=== PATIENT | male | born 1945 | race Caucasian/White ===

== ENCOUNTER → 2017-12-11 | Outpatient (CLI) | END | disposition home or self-care (01) ==

== ENCOUNTER 2018-02-19 10:19 | Observation (INO) | END 2018-02-20 18:40 | disposition home or self-care (01) ==

== ENCOUNTER 2018-03-03 06:55 | Inpatient (IN) | END 2018-03-07 19:35 | disposition home or self-care (01) | DRG 696 ==

== ENCOUNTER 2018-03-09 23:11 | Inpatient (IN) | payer MEDICARE, OTHER ==
[~2018-03-09] VITALS: Ht 167.6 cm; Wt 94.7 kg
[~2018-03-09 23:11] MED LIST: AMLO5TAB4 PO; ATEN-51 PO; ATOR40TA68 PO; LISI10TA2 PO; LITH300C PO; NPH,100V SQ; TAMS0.4C2 PO; TERA1CAP39 PO
[2018-03-09] MEDS ORDERED: morphine 4 MG/ML VIAL IV STA (23:23)
[2018-03-09] MEDS ORDERED: CEFEPIME 2GM/50 ML (PMX) 50 ML IVPB STA (23:23)
[2018-03-09] MEDS ORDERED: ONDANSETRON 4 MG INJ IV STA (23:23)
[2018-03-09] MEDS ORDERED: SODIUM CHLORIDE 0.9% 1L BAG IV* STA (23:23)
[2018-03-09] MEDS ORDERED: ACETAMINOPHEN 325 MG TAB PO STA (23:23)
[2018-03-09] MEDS ORDERED: VANCOMYCIN 1 GM (PMX) 250 ML IVPB ONE (23:30)
[2018-03-10] VITALS (12 sets, daily range): BP systolic 89–146; BP diastolic 48–65; PULSE 64–100; RESP 18–20; Ht 167.6 cm; Wt 94.7 kg
[2018-03-10] MEDS ORDERED: NACL 0.9% 3 ML SYG IV SCH (04:30)
[2018-03-10] MEDS ORDERED: GLUCOSE GEL 15 GRAM TUBE BUCCAL PRN (04:30)
[2018-03-10] MEDS ORDERED: LORAZEPAM 0.5 MG TAB PO PRN (04:30)
[2018-03-10] MEDS ORDERED: GLUCOSE GEL 15 GRAM TUBE PO PRN ×2 (04:30)
[2018-03-10] MEDS ORDERED: ACETAMINOPHEN 325 MG TAB PO PRN (04:30)
[2018-03-10] MEDS ORDERED: DEXTROSE 50% 50 ML SYRINGE IV PRN ×2 (04:30)
[2018-03-10] MEDS ORDERED: GLUCAGON 1 MG INJ IM PRN (04:30)
[2018-03-10] MEDS ORDERED: HYDROCODONE/APAP (5/325) TAB PO PRN (04:30)
[2018-03-10] MEDS ORDERED: DOCUSATE SODIUM 100 MG CAP PO PRN (04:30)
[2018-03-10] MEDS ORDERED: ONDANSETRON 4 MG TAB PO PRN (04:30)
[2018-03-10] MEDS ORDERED: FOSFOMYCIN 3 GM PACKET PO ONE (06:30)
--- NOTE | 2018-03-10 07:04 | NUR ---
EOSS: Pt. re-admitted to Tele 03/10/2018. Discharged from our unit about 3 days ago. Pt. came back due to urgency to void and blood in urine. Pt. placed on conveyor monitor. Vital signs stable. No fever. No chills. Wound assessment complete. Pictures filed in physical file. Hourly rounding complete. All needs meet. Bed in lowest position. Bed alarm on. Will continue to monitor.
[2018-03-10] MEDS: INSULIN ASPART [NOVOLOG] 3 ML PEN SC SCH ×7 (07:54→21:26)
[2018-03-10] MEDS ORDERED: INSULIN GLARGINE [LANTus] (100 UNITS/ML) SYG SC SCH (08:00)
--- NOTE | 2018-03-10 08:08 | NUR ---
Glucose 371. Called and informed Dr. Paulino. This RN gave insulin scheduled for this AM. No new orders.
[2018-03-10] MEDS ORDERED: ENOXAPARIN 40 MG/0.4 ML SYG SC SCH (09:00)
--- NOTE | 2018-03-10 09:22 | PN ---
Date/Time of Note Date/Time of Note DATE: 03/10/18 TIME: 09:13 Assessment/Plan VTE Prophylaxis SCD applied (from Nsg): Yes Pharmacological prophylaxis: NA/contraindicated (hematuria) Pharm contraindication: bleeding Lines/Catheters IV Catheter Type (from Nrsg): Peripheral IV Urinary Cath still in place: Yes Reason Cath still needed: other (indicate) (hematuria) Assessment/Plan Result Diagram: 03/09/18 2340 03/09/18 2340 Results 24hrs Laboratory Tests Test 03/09/18 23:27 03/09/18 23:40 03/10/18 07:43 POC Venous Lactate 3.0 *H White Blood Count 15.6 #H Red Blood Count 2.95 L Hemoglobin 9.1 L Hematocrit 27.7 L Mean Corpuscular Volume 93.9 Mean Corpuscular Hemoglobin 30.8 Mean Corpuscular 32.9 Hemoglobin Concent Red Cell Distribution Width 12.6 Platelet Count 439 #H Mean Platelet Volume 9.3 Immature Granulocytes % 0.600 H Neutrophils % 84.7 H Lymphocytes % 5.2 L Monocytes % 8.8 Eosinophils % 0.4 Basophils % 0.3 Nucleated Red Blood Cells % 0.0 Immature Granulocytes # 0.090 H Neutrophils # 13.2 H Lymphocytes # 0.8 Monocytes # 1.4 H Eosinophils # 0.1 Basophils # 0.1 Nucleated Red Blood Cells # 0.0 Prothrombin Time 13.7 Prothrombin Time Ratio 1.1 INR International 1.04 Normalized Ratio Activated Partial Thromboplast 26.9 Time Urine Color RED Urine Clarity TURBID A Urine pH 7.0 Urine Specific [place] 1.030 Urine Ketones TRACE A Urine Nitrite NEGATIVE Urine Bilirubin NEGATIVE Urine Urobilinogen NEGATIVE Urine Leukocyte Esterase NEGATIVE Urine Microscopic RBC > 182 H Urine Microscopic WBC 132 H Urine Hemoglobin 3+ H Urine Glucose 3+ H Urine Total Protein 3+ H Sodium Level 136 Potassium Level 4.8 Chloride Level 99 Carbon Dioxide Level 20 L Anion Gap 17 H Blood Urea Nitrogen 25 H Creatinine 1.17 Est Glomerular Filtrat Rate mL/min Glucose Level 468 *H Calcium Level 9.2 Total Bilirubin 1.1 Direct Bilirubin 0.00 Indirect Bilirubin 1.1 Aspartate Amino 17 Transf (AST/SGOT) Alanine 20 Aminotransferase (ALT/SGPT) Alkaline Phosphatase 126 H Troponin I < 0.012 Total Protein 6.4 Albumin 3.4 Globulin 3.00 Albumin/Globulin Ratio 1.13 Bedside Glucose 371 H Subjective 24 Hr Interval Summary Free Text/Dictation discharged home thursday after several day stay w gross hematuria, cleared with irrigation. last pm again hematuria, noted a temp at home, not clear if any pain, just difficulty voiding. adm this am, all cultures done, placed on antibiotics. wbc, lactate and glucose all elevated. hgb about same as on dc sleepy but alert. typically poor historian. other history positive for bipolar illness, currently stable w lithium ashd, stable, no sx diabetes, on nph bid at home, typically poor control, poor insight. fortunately no complications despite years of history plan, irrigation set up, dr andrews to follow up. lungs clear, hr ok, abd obese, non tender, ext neg. flowers in place with gross hematuria Genitourinary: bleeding Exam/Review of Systems Vital Signs Vitals Vital Signs Date Temp Pulse Resp B/P (MAP) Pulse Ox O2 O2 Flow FiO2 Time Delivery Rate 03/10/18 89 08:39 03/10/18 97.3 20 127/61 98 Room Air 07:14 (83) Intake and Output 03/09/18 03/09/18 03/10/18 1515:00 23:00 07:00 IntakeIntake Total 75 ml OutputOutput Total 300 ml BalanceBalance -225 ml Medications Medications Current Medications IV Flush (NS 3 ml) 3 ml PER PROTOCOL IV ; Start 03/10/18 at 04:30 Lorazepam (Ativan) 0.5 mg Q8H PRN PO ANXIETY; Start 03/10/18 at 04:30 Ondansetron HCl (Zofran Tab) 4 mg Q6H PRN PO NAUSEA AND/OR VOMITING; Start 03/10/18 at 04:30 Aspirin (Aspirin) 81 mg DAILY PO ; Start 03/10/18 at 09:00 Acetaminophen (Tylenol Tab) 650 mg Q6H PRN PO PAIN LEVEL 1-3 OR FEVER; Start 03/10/18 at 04:30 Acetaminophen/ Hydrocodone Bitart ([place] (5/325)) 1 tab Q6H PRN PO PAIN LEVEL 4-6; Start 03/10/18 at 04:30 Docusate Sodium (Colace) 100 mg Q12H PRN PO CONSTIPATION; Start 03/10/18 at 04:30 Famotidine (Pepcid) 20 mg Q12 PO ; Start 03/10/18 at 09:00 Enoxaparin Sodium (Lovenox) 40 mg DAILY SC ; Start 03/10/18 at 09:00 Cefepime HCl 50 ml @ 100 mls/hr Q12 IVPB ; Start 03/10/18 at 09:00 Amlodipine Besylate (Norvasc) 5 mg DAILY PO ; Start 03/10/18 at 09:00 Atenolol (Tenormin) 25 mg DAILY PO ; Start 03/10/18 at 09:00 Atorvastatin Calcium (Lipitor) 40 mg QHS PO ; Start 03/10/18 at 21:00 Lisinopril (Zestril) 10 mg DAILY PO ; Start 03/10/18 at 09:00 [place] Carbonate ([place] Carbonate) 300 mg DAILY PO ; Start 03/10/18 at 09:00 Tamsulosin HCl (Flomax) 0.4 mg HS PO ; Start 03/10/18 at 21:00 Diagnostic Test (Pha) (Accu-Chek) 1 ea 02 XX ; Start 03/11/18 at 02:00 Diagnostic Test (Pha) (Accu-Chek) 1 ea 2 HOURS AFTER MEALS XX ; Start 03/10/18 at 10:00 Insulin Aspart (Novolog Insulin Pen) 6 unit WITH MEALS SC Last administered on 03/10/18at 07:54; Admin Dose 6 UNIT; Start 03/10/18 at 08:00 Insulin Aspart (Novolog Insulin Pen) NOVOLOG *MILD* ALGORITHM WITH MEALS BEDTIME SC Last administered on 03/10/18at 07:54; Admin Dose 7 UNIT; Start 03/10/18 at 08:00 Miscellaneous Information 1 ea NOTE XX ; Start 03/10/18 at 04:30 Glucose (Glutose) 15 gm Q15M PRN PO DECREASED GLUCOSE; Start 03/10/18 at 04:30 Glucose (Glutose) 22.5 gm Q15M PRN PO DECREASED GLUCOSE; Start 03/10/18 at 04:30 Dextrose (D50w Syringe) 25 ml Q15M PRN IV DECREASED GLUCOSE; Start 03/10/18 at 04:30 Dextrose (D50w Syringe) 50 ml Q15M PRN IV DECREASED GLUCOSE; Start 03/10/18 at 04:30 Glucagon (Glucagen) 1 mg Q15M PRN IM DECREASED GLUCOSE; Start 03/10/18 at 04:30 Glucose (Glutose) 15 gm Q15M PRN BUCCAL DECREASED GLUCOSE; Start 03/10/18 at 04:30 Insulin Human NPH (Humulin N) 16 unit BID@08,20 SC ; Start 03/10/18 at 20:00; Status LILIAM TERESA MD Mar 10, 2018 09:22
[2018-03-10] MEDS: ASPIRIN 81 MG TAB PO SCH (09:42)
[2018-03-10] MEDS: ATENOLOL 25 MG TAB PO SCH (09:42)
[2018-03-10] MEDS: FAMOTIDINE 20 MG TAB PO SCH ×2 (09:42→20:52)
[2018-03-10] MEDS: LITHIUM CARBONATE 300 MG CAP PO SCH (09:42)
[2018-03-10] MEDS: AMLODIPINE 5 MG TAB PO SCH (09:42)
[2018-03-10] MEDS: LISINOPRIL 10 MG TAB PO SCH (09:42)
[2018-03-10] MEDS: CEFEPIME 2GM/50 ML (PMX) 50 ML IVPB SCH ×2 (09:43→21:21)
[2018-03-10] MEDS: ACCU-CHEK XX SCH ×3 (10:05→20:02)
--- NOTE | 2018-03-10 10:55 | PREOPHP ---
DATE OF ADMISSION: 03/10/2018 CHIEF COMPLAINT: Gross hematuria. HISTORY OF PRESENT ILLNESS: This is a 72-year-old male with known history of prostatic hyp ertrophy post-TUR in 2009. Patient was admitted several weeks ago with gross hematuria and was disch arged on Thursday with clear urine. At that time, he was treated with triple lumen irrigation and A large catheter with manual irrigation of bladder to remove clots by Dr. Babcock. The patient was doi ng well until last night when he again started to have some difficulty voiding and then noticed gross bleeding. He says he had a temperature of 101 and some sweats. In the Emergency Room, he was afebr ile and had a slightly elevated white count, slightly elevated lactate level. His blood sugars are h igh, but that is not unusual for him. Normal kidney function, normal liver functions, etc. Chest x- ray is unremarkable. Cultures were obtained. The patient was placed on intravenous antibiotics and given 1 dose of Monuril orally. His usual medications have been continued. The patient is admitted to the hospital. He is currently afebrile with normal blood pressure and pulse. There are no system ic signs of sepsis at this point, patient is in his usual state of health although he is quite fatigu ed. There is gross hematuria by Dougherty catheter. PAST MEDICAL HISTORY: Positive for prostatic enlargement. He has history of coronary artery disease with stent placement years ago. His cardiac status has been stable. Recent cardiac evaluation prio r to hernia repair was unremarkable longstanding history of diabetes type 2, poorly controlled despit e insulin, mainly because of diet and lack of exercise. There have been no complications. He has hi story of hypertension, hyperlipidemia and bipolar disorder. PAST SURGICAL HISTORY: Include the recent inguinal and umbilical hernia repair. He also has a cardi ac stent, shoulder dislocation repair and TURP. FAMILY HISTORY: Parents are both . Mother was a holocaust survivor. SOCIAL HISTORY: He lives alone with a little social contact other than a neighbor. The patient mainor gee smoked cigarettes, does not use alcohol. REVIEW OF SYSTEMS: Not complaining of headaches or dizziness. Requires reading glasses. He is not complaining of being short of breath or having exertional chest pain. No GI symptoms, even with gross hematuria. No significant rashes. PHYSICAL EXAMINATION: VITAL SIGNS: Blood pressure is 126/61, pulse is 90 regular sinus rhythm. He is afebrile. Normal pu lse ox on room air. GENERAL: Alert and fluent in his usual state of mentation. The patient does have some strange ideat ion but does not have hallucinations and is functioning and able to make appropriate decisions. HEENT: Unremarkable. Mouth somewhat dry. NECK: Supple. HEART: No murmurs are heard. LUNGS: Sound clear to percussion and auscultation. ABDOMEN: Obese, soft, without masses. GENITOURINARY: Dougherty is present. Gross hematuria is noted. EXTREMITIES: No clubbing, cyanosis, edema. Fair peripheral pulses. NEUROLOGIC: Intact. INITIAL IMPRESSION: 1. Gross hematuria, recurrent. Dr. Babcock has been consulted. Most likely the patient will need a cystoscopy and a possible surgical resection if there is a bleeding source. 2. Diabetes mellitus, poor control, stable without complications. 3. Atherosclerotic coronary artery disease, stable. 4. Hypertension, stable under treatment. 5. Bipolar illness, stable on [place]. DISCUSSION: His usual home medicines have been continued, and as noted Dr. Babcock has been consulte d. CONDITION: Fair. Dictated By: LILIAM IVERSON MD SR/NTS Conf#: [id number] DID#: [id number] CC: BENJA CHAVEZ MD;*End*
--- NOTE | 2018-03-10 11:06 | PREAC ---
Date/Time of Note Date/Time of Note DATE: 03/10/18 TIME: 11:04 Anesthesia Eval and Record Evaluation Time Pre-Procedure Interview DATE: 03/10/18 TIME: 11:04 Age 72 Sex male NPO: 8 hrs Preoperative diagnosis hematuria Planned procedure Cystoscopy Past Medical History Past Medical History: Includes Cardio: HTN, Dyslipidemia, PTCA/Stent (stent x2) Psych: Bipolar Surgery & Anesthesia Issues No known issue Meds Anticoagulation: No Beta Krystina within 24 hr: Yes Reported Medications Insulin NPH Human [place] (Humulin N) 100 Unit/1 Ml Vial, 0 SQ SLIDING SCALE, VIAL 02/19/18 Atenolol* (Atenolol*) 25 Mg Tablet, 25 MG PO DAILY, #30 TAB 02/19/18 [place] Carbonate* ([place]*) 300 Mg Capsule, 300 MG PO DAILY, CAP 02/19/18 Lisinopril* (Lisinopril*) 10 Mg Tablet, 10 MG PO DAILY, #30 TAB 02/19/18 Amlodipine Besylate* (Norvasc*) 5 Mg Tablet, 5 MG PO DAILY, TAB 02/19/18 Terazosin Hcl* (Hytrin*) 1 Mg Cap, 1 MG PO BID, CAP 02/19/18 Atorvastatin* (Atorvastatin*) 40 Mg Tablet, 40 MG PO QHS, #30 TAB 02/19/18 Tamsulosin Hcl* (Tamsulosin Hcl*) 0.4 Mg Cap.er.24h, 0.4 MG PO HS, CAP 02/19/18 Current Medications IV Flush (NS 3 ml) 3 ml PER PROTOCOL IV ; Start 03/10/18 at 04:30 Lorazepam (Ativan) 0.5 mg Q8H PRN PO ANXIETY; Start 03/10/18 at 04:30 Ondansetron HCl (Zofran Tab) 4 mg Q6H PRN PO NAUSEA AND/OR VOMITING; Start 03/10/18 at 04:30 Aspirin (Aspirin) 81 mg DAILY PO Last administered on 03/10/18at 09:42; Admin Dose 81 MG; Start 03/10/18 at 09:00 Acetaminophen (Tylenol Tab) 650 mg Q6H PRN PO PAIN LEVEL 1-3 OR FEVER; Start 03/10/18 at 04:30 Acetaminophen/ Hydrocodone Bitart ([place] (5/325)) 1 tab Q6H PRN PO PAIN LEVEL 4-6 Last administered on 03/10/18 09:52; Admin Dose 1 TAB; Start 03/10/18 at 04:30 Docusate Sodium (Colace) 100 mg Q12H PRN PO CONSTIPATION; Start 03/10/18 at 04:30 Famotidine (Pepcid) 20 mg Q12 PO Last administered on 03/10/18 09:42; Admin Dose 20 MG; Start 03/10/18 at 09:00 Cefepime HCl 50 ml @ 100 mls/hr Q12 IVPB Last administered on 03/10/18 09:43; Admin Dose 100 MLS/HR; Start 03/10/18 at 09:00 Amlodipine Besylate (Norvasc) 5 mg DAILY PO Last administered on 03/10/18 09:42; Admin Dose 5 MG; Start 03/10/18 at 09:00 Atenolol (Tenormin) 25 mg DAILY PO Last administered on 03/10/18 09:42; Admin Dose 25 MG; Start 03/10/18 at 09:00 Atorvastatin Calcium (Lipitor) 40 mg QHS PO ; Start 03/10/18 at 21:00 Lisinopril (Zestril) 10 mg DAILY PO Last administered on 03/10/18 09:42; Admin Dose 10 MG; Start 03/10/18 at 09:00 [place] Carbonate ([place] Carbonate) 300 mg DAILY PO Last administered on 03/10/18 09:42; Admin Dose 300 MG; Start 03/10/18 at 09:00 Tamsulosin HCl (Flomax) 0.4 mg HS PO ; Start 03/10/18 at 21:00 Diagnostic Test (Pha) (Accu-Chek) 1 ea 02 XX ; Start 03/11/18 at 02:00 Diagnostic Test (Pha) (Accu-Chek) 1 ea 2 HOURS AFTER MEALS XX Last administered on 03/10/18at 10:05; Admin Dose 1 EA; Start 03/10/18 at 10:00 Insulin Aspart (Novolog Insulin Pen) 6 unit WITH MEALS SC Last administered on 03/10/18 07:54; Admin Dose 6 UNIT; Start 03/10/18 at 08:00 Insulin Aspart (Novolog Insulin Pen) NOVOLOG *MILD* ALGORITHM WITH MEALS BEDTIME SC Last administered on 12/26/18at 07:54; Admin Dose 7 UNIT; Start 03/10/18 at 08:00 Miscellaneous Information 1 ea NOTE XX ; Start 03/10/18 at 04:30 Glucose (Glutose) 15 gm Q15M PRN PO DECREASED GLUCOSE; Start 03/10/18 at 04:30 Glucose (Glutose) 22.5 gm Q15M PRN PO DECREASED GLUCOSE; Start 03/10/18 at 04:30 Dextrose (D50w Syringe) 25 ml Q15M PRN IV DECREASED GLUCOSE; Start 03/10/18 at 04:30 Dextrose (D50w Syringe) 50 ml Q15M PRN IV DECREASED GLUCOSE; Start 03/10/18 at 04:30 Glucagon (Glucagen) 1 mg Q15M PRN IM DECREASED GLUCOSE; Start 03/10/18 at 04:30 Glucose (Glutose) 15 gm Q15M PRN BUCCAL DECREASED GLUCOSE; Start 03/10/18 at 04:30 Insulin Human NPH (Humulin N) 16 unit BID@08,20 SC ; Start 03/10/18 at 20:00 Meds reviewed: Yes Allergies Coded Allergies: No Known Drug Allergy (Verified Allergy, Unknown, 03/02/18) Allergies Reviewed: Yes Labs/Studies Labs Reviewed: Reviewed by anesthesiologist Result Diagram: 03/09/18 2340 03/09/18 2340 Laboratory Tests 03/09/18 23:40 test: N/A Studies: ECG (ST), CXR (Rotated chest x-ray with low lung volumes. No acute disease.) Pre-procedure Exam Last vitals Vital Signs Date Temp Pulse Resp B/P (MAP) Pulse Ox O2 O2 Flow FiO2 Time Delivery Rate 03/10/18 89 08:39 03/10/18 97.3 20 127/61 98 Room Air 07:14 (83) Airway: Adequate mouth opening Mallampati: Mallampati II Teeth: Normal Lung: Normal Heart: Normal ASA Physical Status ASA physical status: 3 Emergency: None Planned Anesthetic General/MAC: LMA Pre-operative Attestations Prior to commencing anesthesia and surgery, the patient was re-evaluated, there was verification of: *The patient's identity *The results of appropriate recent lab work and preoperative vital signs *The above evaluation not changing prior to induction *Anesthetic plan, risk benefits, alternative and complications discussed with patient/family; questions answered; patient/family understands, accepts and wishes to proceed. CHRISTINE STANLEY Mar 10, 2018 11:06
--- NOTE | 2018-03-10 11:06 | NUR ---
SW: READMISSION QUESTIONNAIRE SW met with this 72-year-old Filipino speaking male at bedside for readmission questionnaire. Patient recently d/c'd home on 03/07/18. and readmitted 3 days later on 03/10/18 with admitting diagnosis of Sepsis and UTI. Patient states he did not read his discharge instructions. States that he did not follow up with his PMD because he was home for only 3 days. States that he got all of his medications filled and denies any issues with his medications. Denies any questions/ concerns, and states he just wants to get better. Patient states he lives home alone at [address] [place], [place] [id number] [id number]. States he is retired and he lives off of his saved money from stocks and bonds. States he does also receive a "small jail pension" of about $200 a month. Patient states he is fully independent at home with his ADL's, and states he drives a car. Patient denies having an AHCD, and states he has nobody he wants to designate as a surrogate spokesperson. States that he does not want to put the burden of making decisions on anybody. States he wants two physicians to sign off incase of emergencies. States he wants to be full code at this time, but states that if it seems like he is not going to recover, then to "let him be." Patient declined to provide more information. Patient denies any questions/ concerns. SW remains available as needed throughout patient's treatment process.
--- NOTE | 2018-03-10 12:29 | CONS ---
Date/Time of Note Date/Time of Note DATE: 03/10/18 TIME: 12:16 Assessment/Plan Assessment/Plan Assessment/Plan 72-year-old male with a history of coronary artery disease with stent placement years ago was admitted to the hospital last week because of gross hematuria. He had an indwelling catheter with continuous bladder irrigation. The urine cleared up and the Douhgerty was removed and he was able to urinate and was discharged home to follow-up as an outpatient. However the patient started having gross hematuria again and was not able to urinate and called 911 and was brought to the hospital again. His cardiac status has been stable. Recent cardiac evaluation prior to hernia repair was unremarkable longstanding history of diabetes type 2, poorly controlled despite insulin, mainly because of diet and lack of exercise. There have been no complications. He has history of hypertension, hyperlipidemia and bipolar disorder. I did remove the old Dougherty catheter and inserted a new 24 Chinese three-way Dougherty catheter with a 30 cc balloon. Spent over 40 minutes and irrigating the blood clots out of the bladder and then put him on continuous bladder irrigation with normal saline. Impression: Gross hematuria and urinary retention. This is most likely secondary to bleeding from the prostate but the bladder tumor is a possibility. Plan: Cystoscopy and possible transurethral resection of bladder tumor and / or prostate. I explained the procedure to the patient, the benefits, the risks and possible complications and answered all his questions. He understood and he is agreeable to proceed. Result Diagram: 03/09/18 2340 03/09/18 2340 Results 24hrs Laboratory Tests Test 03/09/18 23:27 03/09/18 23:40 03/10/18 07:43 03/10/18 08:05 POC Venous 3.0 *H Lactate White Blood 15.6 #H Count Red Blood Count 2.95 L Hemoglobin 9.1 L Hematocrit 27.7 L Mean Corpuscular 93.9 Volume Mean Corpuscular 30.8 Hemoglobin Mean Corpuscular 32.9 Hemoglobin Aubrie nt Red Cell 12.6 Distribution Width Platelet Count 439 #H Mean Platelet 9.3 Volume Immature 0.600 H Granulocytes % Neutrophils % 84.7 H Lymphocytes % 5.2 L Monocytes % 8.8 Eosinophils % 0.4 Basophils % 0.3 Nucleated Red 0.0 Blood Cells % Immature 0.090 H Granulocytes # Neutrophils # 13.2 H Lymphocytes # 0.8 Monocytes # 1.4 H Eosinophils # 0.1 Basophils # 0.1 Nucleated Red 0.0 Blood Cells # Prothrombin Time 13.7 Prothrombin Time 1.1 Ratio INR 1.04 International Normalized Ratio Activated 26.9 Partial Thrombop last Time Urine Color RED ROMEO Urine Clarity TURBID A CLOUDY A Urine pH 7.0 8.0 Urine Specific 1.030 1.027 [place] Urine Ketones TRACE A TRACE A Urine Nitrite NEGATIVE NEGATIVE Urine Bilirubin NEGATIVE NEGATIVE Urine NEGATIVE NEGATIVE Urobilinogen Urine Leukocyte NEGATIVE NEGATIVE Esterase Urine > 182 H Microscopic RBC Urine 132 H Microscopic WBC Urine Hemoglobin 3+ H 3+ H Urine Glucose 3+ H 3+ H Urine Total 3+ H 3+ H Protein Sodium Level 136 Potassium Level 4.8 Chloride Level 99 Carbon Dioxide 20 L Level Anion Gap 17 H Blood Urea 25 H Nitrogen Creatinine 1.17 Est Glomerular Filtrat Rate mL/min Glucose Level 468 *H Calcium Level 9.2 Total Bilirubin 1.1 Direct Bilirubin 0.00 Indirect 1.1 Bilirubin Aspartate Amino 17 Transf (AST/SGOT ) Alanine 20 Aminotransferase (ALT/SGPT) Alkaline 126 H Phosphatase Troponin I < 0.012 Total Protein 6.4 Albumin 3.4 Globulin 3.00 Albumin/Globulin 1.13 Ratio Bedside Glucose 371 H Test 03/10/18 08:22 03/10/18 09:59 Lactic Acid 1.3 Level Bedside Glucose 220 Consultation Date/Type/Reason Admit Date/Time Mar 10, 2018 at 01:22 Date of Consultation: Mar 10, 2018 Type of Consult Urology Reason for Consultation Gross hematuria and urinary retention Requesting Provider: LILIAM IVERSON MD Hx of Present Illness 72-year-old male with a history of coronary artery disease with stent placement years ago was admitted to the hospital last week because of gross hematuria. He had an indwelling catheter with continuous bladder irrigation. The urine cleared up and the Dougherty was removed and he was able to urinate and was discharged home to follow-up as an outpatient. However the patient started having gross hematuria again and was not able to urinate and called 911 and was brought to the hospital again. Eyes: no complaints ENT: no complaints Respiratory: no complaints Cardiovascular: No chest pain Gastrointestinal: pain (Lower abdomen) Genitourinary: hematuria Musculoskeletal: no complaints Skin: no complaints Neurologic: no complaints Endocrine: other (Patient has diabetes) Lymphatic: no complaints Psychological: other (Bipolar disorder) Immunologic: no complaints Past Medical History Medical History: coronary artery disease, diabetes, high cholesterol, hypertension Medications Current Medications IV Flush (NS 3 ml) 3 ml PER PROTOCOL IV ; Start 03/10/18 at 04:30 Lorazepam (Ativan) 0.5 mg Q8H PRN PO ANXIETY; Start 03/10/18 at 04:30 Ondansetron HCl (Zofran Tab) 4 mg Q6H PRN PO NAUSEA AND/OR VOMITING; Start 03/10/18 at 04:30 Aspirin (Aspirin) 81 mg DAILY PO Last administered on 03/10/18at 09:42; Admin Dose 81 MG; Start 03/10/18 at 09:00 Acetaminophen (Tylenol Tab) 650 mg Q6H PRN PO PAIN LEVEL 1-3 OR FEVER; Start 03/10/18 at 04:30 Acetaminophen/ Hydrocodone Bitart ([place] (5/325)) 1 tab Q6H PRN PO PAIN LEVEL 4-6 Last administered on 03/10/18at 09:52; Admin Dose 1 TAB; Start 03/10/18 at 04:30 Docusate Sodium (Colace) 100 mg Q12H PRN PO CONSTIPATION; Start 03/10/18 at 04:30 Famotidine (Pepcid) 20 mg Q12 PO Last administered on 03/10/18at 09:42; Admin Dose 20 MG; Start 03/10/18 at 09:00 Cefepime HCl 50 ml @ 100 mls/hr Q12 IVPB Last administered on 03/10/18at 09:43; Admin Dose 100 MLS/HR; Start 03/10/18 at 09:00 Amlodipine Besylate (Norvasc) 5 mg DAILY PO Last administered on 03/10/18at 09:42; Admin Dose 5 MG; Start 03/10/18 at 09:00 Atenolol (Tenormin) 25 mg DAILY PO Last administered on 03/10/18at 09:42; Admin Dose 25 MG; Start 03/10/18 at 09:00 Atorvastatin Calcium (Lipitor) 40 mg QHS PO ; Start 03/10/18 at 21:00 Lisinopril (Zestril) 10 mg DAILY PO Last administered on 03/10/18at 09:42; Admin Dose 10 MG; Start 03/10/18 at 09:00 [place] Carbonate ([place] Carbonate) 300 mg DAILY PO Last administered on 03/10/18at 09:42; Admin Dose 300 MG; Start 03/10/18 at 09:00 Tamsulosin HCl (Flomax) 0.4 mg HS PO ; Start 03/10/18 at 21:00 Diagnostic Test (Pha) (Accu-Chek) 1 ea 02 XX ; Start 03/11/18 at 02:00 Diagnostic Test (Pha) (Accu-Chek) 1 ea 2 HOURS AFTER MEALS XX Last administered on 03/10/18at 10:05; Admin Dose 1 EA; Start 03/10/18 at 10:00 Insulin Aspart (Novolog Insulin Pen) 6 unit WITH MEALS SC Last administered on 03/10/18at 07:54; Admin Dose 6 UNIT; Start 03/10/18 at 08:00 Insulin Aspart (Novolog Insulin Pen) NOVOLOG *MILD* ALGORITHM WITH MEALS BEDTIME SC Last administered on 03/10/18at 07:54; Admin Dose 7 UNIT; Start 03/10/18 at 08:00 Miscellaneous Information 1 ea NOTE XX ; Start 03/10/18 at 04:30 Glucose (Glutose) 15 gm Q15M PRN PO DECREASED GLUCOSE; Start 03/10/18 at 04:30 Glucose (Glutose) 22.5 gm Q15M PRN PO DECREASED GLUCOSE; Start 03/10/18 at 0 4:30 Dextrose (D50w Syringe) 25 ml Q15M PRN IV DECREASED GLUCOSE; Start 03/10/18 at 04:30 Dextrose (D50w Syringe) 50 ml Q15M PRN IV DECREASED GLUCOSE; Start 03/10/18 at 04:30 Glucagon (Glucagen) 1 mg Q15M PRN IM DECREASED GLUCOSE; Start 03/10/18 at 04:30 Glucose (Glutose) 15 gm Q15M PRN BUCCAL DECREASED GLUCOSE; Start 03/10/18 at 04:30 Insulin Human NPH (Humulin N) 16 unit BID@08,20 SC ; Start 03/10/18 at 20:00 Allergies: Coded Allergies: No Known Drug Allergy (Verified Allergy, Unknown, 03/02/18) Past Surgical History Past Surgical Hx: other (Umbilical and inguinal hernia repair recently. Repair of right shoulder dislocation. Coronary stent. And transurethral resection of prostate in 2009.) Social History Alcohol Use: rarely Smoking Status: Never smoker Exam/Review of Systems Vital Signs Vitals Vital Signs Date Temp Pulse Resp B/P (MAP) Pulse Ox O2 O2 Flow FiO2 Time Delivery Rate 03/10/18 73 12:10 03/10/18 98.5 20 89/55 (66) 95 Room Air 11:11 Intake and Output 03/09/18 03/09/18 03/10/18 1515:00 23:00 07:00 IntakeIntake Total 75 ml OutputOutput Total 300 ml BalanceBalance -225 ml Exam Constitutional: alert Psych: no complaints Head: normocephalic Eyes: nl conjunctiva ENMT: nl external ears & nose Neck: supple Respiratory: normal air movement Cardiovascular: No jugular venous distention (JVD) Gastrointestinal: tender (Suprapubic area) Genitourinary - Male: other (Has a 16 Chinese Dougherty catheter that is draining gross bloody urine.) Musculoskeletal: nl extremities to inspection Extremities: No calf tenderness Neurological: nl mental status Skin: nl turgor Medications Medications Current Medications IV Flush (NS 3 ml) 3 ml PER PROTOCOL IV ; Start 03/10/18 at 04:30 Lorazepam (Ativan) 0.5 mg Q8H PRN PO ANXIETY; Start 03/10/18 at 04:30 Ondansetron HCl (Zofran Tab) 4 mg Q6H PRN PO NAUSEA AND/OR VOMITING; Start 03/10/18 at 04:30 Aspirin (Aspirin) 81 mg DAILY PO Last administered on 03/10/18at 09:42; Admin Dose 81 MG; Start 03/10/18 at 09:00 Acetaminophen (Tylenol Tab) 650 mg Q6H PRN PO PAIN LEVEL 1-3 OR FEVER; Start 03/10/18 at 04:30 Acetaminophen/ Hydrocodone Bitart ([place] (5/325)) 1 tab Q6H PRN PO PAIN LEVEL 4-6 Last administered on 03/10/18at 09:52; Admin Dose 1 TAB; Start 03/10/18 at 04:30 Docusate Sodium (Colace) 100 mg Q12H PRN PO CONSTIPATION; Start 03/10/18 at 04:30 Famotidine (Pepcid) 20 mg Q12 PO Last administered on 03/10/18at 09:42; Admin Dose 20 MG; Start 03/10/18 at 09:00 Cefepime HCl 50 ml @ 100 mls/hr Q12 IVPB Last administered on 03/10/18at 09:43; Admin Dose 100 MLS/HR; Start 03/10/18 at 09:00 Amlodipine Besylate (Norvasc) 5 mg DAILY PO Last administered on 03/10/18at 09:42; Admin Dose 5 MG; Start 03/10/18 at 09:00 Atenolol (Tenormin) 25 mg DAILY PO Last administered on 03/10/18at 09:42; Admin Dose 25 MG; Start 03/10/18 at 09:00 Atorvastatin Calcium (Lipitor) 40 mg QHS PO ; Start 03/10/18 at 21:00 Lisinopril (Zestril) 10 mg DAILY PO Last administered on 03/10/18at 09:42; Admin Dose 10 MG; Start 03/10/18 at 09:00 [place] Carbonate ([place] Carbonate) 300 mg DAILY PO Last administered on 03/10/18at 09:42; Admin Dose 300 MG; Start 03/10/18 at 09:00 Tamsulosin HCl (Flomax) 0.4 mg HS PO ; Start 03/10/18 at 21:00 Diagnostic Test (Pha) (Accu-Chek) 1 ea 02 XX ; Start 03/11/18 at 02:00 Diagnostic Test (Pha) (Accu-Chek) 1 ea 2 HOURS AFTER MEALS XX Last administered on 03/10/18at 10:05; Admin Dose 1 EA; Start 03/10/18 at 10:00 Insulin Aspart (Novolog Insulin Pen) 6 unit WITH MEALS SC Last administered on 03/10/18at 07:54; Admin Dose 6 UNIT; Start 03/10/18 at 08:00 Insulin Aspart (Novolog Insulin Pen) NOVOLOG *MILD* ALGORITHM WITH MEALS BEDTIME SC Last administered on 03/10/18at 07:54; Admin Dose 7 UNIT; Start 03/10/18 at 08:00 Miscellaneous Information 1 ea NOTE XX ; Start 03/10/18 at 04:30 Glucose (Glutose) 15 gm Q15M PRN PO DECREASED GLUCOSE; Start 03/10/18 at 04:30 Glucose (Glutose) 22.5 gm Q15M PRN PO DECREASED GLUCOSE; Start 03/10/18 at 04:30 Dextrose (D50w Syringe) 25 ml Q15M PRN IV DECREASED GLUCOSE; Start 03/10/18 at 04:30 Dextrose (D50w Syringe) 50 ml Q15M PRN IV DECREASED GLUCOSE; Start 03/10/18 at 04:30 Glucagon (Glucagen) 1 mg Q15M PRN IM DECREASED GLUCOSE; Start 03/10/18 at 04:30 Glucose (Glutose) 15 gm Q15M PRN BUCCAL DECREASED GLUCOSE; Start 03/10/18 at 04:30 Insulin Human NPH (Humulin N) 16 unit BID@08,20 SC ; Start 03/10/18 at 20:00 KAELA DOZIER MD Mar 10, 2018 12:28
[2018-03-10] MEDS ORDERED: SOD CHLORIDE 0.9% 250 ML IV* ONE (12:37)
--- NOTE | 2018-03-10 17:25 | NUR ---
Gave nursing report to Usha on Med-Surg.
--- NOTE | 2018-03-10 18:00 | NUR ---
Sent pt to room 2251. Pt stable. Sent by bed with transport and [employer] [employer]. No complaints. Sent with belongings. All needs met today. IV intact.
--- NOTE | 2018-03-10 18:20 | NUR ---
NRSG NOTE Report received from Sandra on 6w. Pt received to room 2251. A/OX4. Vitals stable. 1 unit of prbc currently transfusing without transfusion reaction. Right hand IV. CBI with flowers catheter with clear lightly pink output. SCD to bilateral lower extremity. Skin to lower extremity intact. Pt refused to turn to assess his back. Pt referred to be done with blood. Novolog pen and nph insulin and 1 tab lithium carbonate. Pt to be NPO after midnight for procedure with Dr. Babcock tomorrow. Oriented pt to call light and to bed alarm. Bed in lowest position and call light within reach.
--- NOTE | 2018-03-10 19:25 | NUR ---
BLOOD TRANSFUSION : 1 UNIT OF PRBC CURRENTLY TRANSFUSING WITHOUT TRANSFUSION REACTION / ADVERSE REACTION . RIGHT HAND IV . CBI WITH [address] WAY FRANCOIS CATHETER WITH CLEAR LIGHTLY PINK IN COLOR URINE OUTPUT. WILL CONTINUE TO MONITOR .
[2018-03-10] MEDS: NPH, HUMAN INSULIN ISOPHANE 3ML VIAL SC SCH (20:00)
--- NOTE | 2018-03-10 20:15 | NUR ---
BLOOD TRANSFUSION 1 UNIT PRBC COMPLETED . NO ADVERSE REACTION NOTED . V/S STABLE .
[2018-03-10] MEDS: ATORVASTATIN 40 MG TAB PO SCH (20:52)
[2018-03-10] MEDS ORDERED: TAMSULOSIN (SR) 0.4 MG CAP PO SCH (21:00)
--- NOTE | 2018-03-10 21:49 | NUR ---
CHARGE NURSE NOTE: Moved patient to room #2236 due to trying to get out of bed. Frequent reminders of safety, yet patient keeps talking over this nurse, and stating he wants to "get out of this cave". Will continue to monitor.
[2018-03-11] VITALS (24 sets, daily range): BP systolic 98–167; BP diastolic 46–66; PULSE 71–104; RESP 0–30
[2018-03-11] MEDS: ACCU-CHEK XX SCH ×4 (02:00→20:05)
--- NOTE | 2018-03-11 02:04 | NUR ---
CHARGE NURSE NOTE: Patient frequently thinks he is at home. Providing frequent orientation. Patient is talkative, and speaks fast. Will continue to monitor.
[2018-03-11] MEDS ORDERED: NEOSTIGMINE 3 MG/3 ML SYRINGE ONE (07:00)
[2018-03-11] MEDS ORDERED: ONDANSETRON 4 MG INJ ONE (07:00)
[2018-03-11] MEDS ORDERED: LIDOCAINE 2% (SDV) 5 ML INJ ONE (07:00)
[2018-03-11] MEDS ORDERED: ROCURONIUM 50 MG INJ ONE (07:00)
[2018-03-11] MEDS ORDERED: GLYCOPYRROLATE 0.4 MG INJ ONE (07:00)
[2018-03-11] MEDS ORDERED: FENTAnyl 50 MCG/ML VIAL ONE (07:00)
[2018-03-11] MEDS ORDERED: CEFAZOLIN 1 GM INJ ONE (07:00)
[2018-03-11] MEDS ORDERED: PROPOFOL 200 MG INJ ONE (07:00)
[2018-03-11] MEDS: INSULIN ASPART [NOVOLOG] 3 ML PEN SC SCH ×7 (07:35→21:26)
[2018-03-11] MEDS: LISINOPRIL 10 MG TAB PO SCH ×2 (08:36→21:22)
[2018-03-11] MEDS: ATENOLOL 25 MG TAB PO SCH (08:37)
[2018-03-11] MEDS: NPH, HUMAN INSULIN ISOPHANE 3ML VIAL SC SCH ×2 (08:37→21:24)
[2018-03-11] MEDS: FAMOTIDINE 20 MG TAB PO SCH ×2 (08:37→21:17)
[2018-03-11] MEDS: CEFEPIME 2GM/50 ML (PMX) 50 ML IVPB SCH (08:37)
[2018-03-11] MEDS: LITHIUM CARBONATE 300 MG CAP PO SCH (08:37)
[2018-03-11] MEDS: AMLODIPINE 5 MG TAB PO SCH (08:37)
[2018-03-11] MEDS: ASPIRIN 81 MG TAB PO SCH (08:38)
--- NOTE | 2018-03-11 09:27 | NUR ---
PT Evaluation note: S: HPI per MD note: This is a 72-year-old male with known history of prostatic hypertrophy post-TUR in 2009. Patient was admitted several weeks ago with gross hematuria and was discharged on Thursday with clear urine. At that time, he was treated with triple lumen irrigation and A large catheter with manual irrigation of bladder to remove clots by Dr. Babcock. The patient was doing well until last night when he again started to have some difficulty voiding and then noticed gross bleeding. He says he had a temperature of 101 and some sweats. In the Emergency Room, he was afebrile and had a slightly elevated white count, slightly elevated lactate level. His blood sugars are high, but that is not unusual for him. Normal kidney function, normal liver functions, etc. Chest x-ray is unremarkable. Cultures were obtained. The patient was placed on intravenous antibiotics and given 1 dose of Monuril orally. His usual medications have been continued. The patient is admitted to the hospital. He is currently afebrile with normal blood pressure and pulse. There are no systemic signs of sepsis at this point, patient is in his usual state of health although he is quite fatigued. There is gross hematuria by Dougherty catheter. O: PREC: HIGH fall risk, forgetful, confused, impulsive PLOF: Per pt he was independent with all ADL and ambulatory without AD, lives alone in apt unit, first floor with 3 steps to enter, no DME owned by patient. pt not sure who will take care of him upon DC. PLOF and living situation needed to be clarified however no contact lens curve grinder assigned in the chart. MD order received for PT consult, pt agreeable, cleared by RN in charge L[place] to proceed, pt pleasantly confused but follows command with multiple/repeated cues. CLOF; Patient needed mod assist for bed mobility, min x 2 for safety due to impulsivity and not focused for transfers, pre-gait training and marching in place along bedside, limited distance due to on going drain and lines. A: Patient can benefit from ARU. P: Cont PT and progress as able, 2P assist for safety.
--- NOTE | 2018-03-11 10:11 | PREAC ---
Date/Time of Note Date/Time of Note DATE: 03/11/18 TIME: 10:05 Anesthesia Eval and Record Evaluation Time Pre-Procedure Interview DATE: 03/11/18 TIME: 10:05 Age 72 Sex male NPO: 8 hrs Preoperative diagnosis BPH Planned procedure Cystoscopy and Poss TURP Past Medical History Past Medical History: Includes Cardio: HTN, Dyslipidemia Endo: Diabetes Pulm: Other Neuro: Peripheral neuropathy Musculoskeletal: Osteoarthritis Renal: BPH, Other Hepatic: Other GI: Other Heme: Anemia Psych: Depression, Anxiety Infection(s): Other Recreational drugs: Other : Other Surgery & Anesthesia Issues Hx of difficult intubation, Significant blood loss, Aspiration risk Meds Anticoagulation: No Beta Krystina within 24 hr: Yes Reason Beta Krystina not given: Other Reported Medications Insulin NPH Human [place] (Humulin N) 100 Unit/1 Ml Vial, 0 SQ SLIDING SCALE, VIAL 02/19/18 Atenolol* (Atenolol*) 25 Mg Tablet, 25 MG PO DAILY, #30 TAB 02/19/18 [place] Carbonate* ([place]skal[place]*) 300 Mg Capsule, 300 MG PO DAILY, CAP 02/19/18 Lisinopril* (Lisinopril*) 10 Mg Tablet, 10 MG PO DAILY, #30 TAB 02/19/18 Amlodipine Besylate* (Norvasc*) 5 Mg Tablet, 5 MG PO DAILY, TAB 02/19/18 Terazosin Hcl* (Hytrin*) 1 Mg Cap, 1 MG PO BID, CAP 02/19/18 Atorvastatin* (Atorvastatin*) 40 Mg Tablet, 40 MG PO QHS, #30 TAB 02/19/18 Tamsulosin Hcl* (Tamsulosin Hcl*) 0.4 Mg Cap.er.24h, 0.4 MG PO HS, CAP 02/19/18 Current Medications IV Flush (NS 3 ml) 3 ml PER PROTOCOL IV ; Start 03/10/18 at 04:30 Lorazepam (Ativan) 0.5 mg Q8H PRN PO ANXIETY; Start 03/10/18 at 04:30 Ondansetron HCl (Zofran Tab) 4 mg Q6H PRN PO NAUSEA AND/OR VOMITING; Start 03/10/18 at 04:30 Aspirin (Aspirin) 81 mg DAILY PO Last administered on 03/10/18at 09:42; Admin Dose 81 MG; Start 03/10/18 at 09:00 Acetaminophen (Tylenol Tab) 650 mg Q6H PRN PO PAIN LEVEL 1-3 OR FEVER Last administered on 03/10/18at 13:54; Admin Dose 650 MG; Start 03/10/18 at 04:30 Acetaminophen/ Hydrocodone Bitart ([place] (5/325)) 1 tab Q6H PRN PO PAIN LEVEL 4-6 Last administered on 03/10/18 09:52; Admin Dose 1 TAB; Start 03/10/18 at 04:30 Docusate Sodium (Colace) 100 mg Q12H PRN PO CONSTIPATION; Start 03/10/18 at 04:30 Famotidine (Pepcid) 20 mg Q12 PO Last administered on 03/11/18 08:37; Admin Dose 20 MG; Start 03/10/18 at 09:00 Cefepime HCl 50 ml @ 100 mls/hr Q12 IVPB Last administered on 03/11/18 08:37; Admin Dose 100 MLS/HR; Start 03/10/18 at 09:00 Amlodipine Besylate (Norvasc) 5 mg DAILY PO Last administered on 03/11/18 08:37; Admin Dose 5 MG; Start 03/10/18 at 09:00 Atenolol (Tenormin) 25 mg DAILY PO Last administered on 03/11/18 08:37; Admin Dose 25 MG; Start 03/10/18 at 09:00 Atorvastatin Calcium (Lipitor) 40 mg QHS PO Last administered on 03/10/18 20:52; Admin Dose 40 MG; Start 03/10/18 at 21:00 Lisinopril (Zestril) 10 mg DAILY PO Last administered on 03/11/18 08:36; Admin Dose 10 MG; Start 03/10/18 at 09:00 [place] Carbonate ([place] Carbonate) 300 mg DAILY PO Last administered on 03/11/18 08:37; Admin Dose 300 MG; Start 03/10/18 at 09:00 Tamsulosin HCl (Flomax) 0.4 mg HS PO Last administered on 03/10/18 20:52; Admin Dose 0.4 MG; Start 03/10/18 at 21:00 Diagnostic Test (Pha) (Accu-Chek) 1 ea 02 XX ; Start 03/11/18 at 02:00 Diagnostic Test (Pha) (Accu-Chek) 1 ea 2 HOURS AFTER MEALS XX Last administer ed on 03/10/18at 14:50; Admin Dose 1 EA; Start 03/10/18 at 10:00 Insulin Aspart (Novolog Insulin Pen) 6 unit WITH MEALS SC Last administered on 03/10/18at 16:41; Admin Dose 6 UNIT; Start 03/10/18 at 08:00 Insulin Aspart (Novolog Insulin Pen) NOVOLOG *MILD* ALGORITHM WITH MEALS BEDTIME SC Last administered on 03/10/18at 21:26; Admin Dose 1 UNIT; Start 03/10/18 at 08:00 Miscellaneous Information 1 ea NOTE XX ; Start 03/10/18 at 04:30 Glucose (Glutose) 15 gm Q15M PRN PO DECREASED GLUCOSE; Start 03/10/18 at 04:30 Glucose (Glutose) 22.5 gm Q15M PRN PO DECREASED GLUCOSE; Start 03/10/18 at 04:30 Dextrose (D50w Syringe) 25 ml Q15M PRN IV DECREASED GLUCOSE; Start 03/10/18 at 04:30 Dextrose (D50w Syringe) 50 ml Q15M PRN IV DECREASED GLUCOSE; Start 03/10/18 at 04:30 Glucagon (Glucagen) 1 mg Q15M PRN IM DECREASED GLUCOSE; Start 03/10/18 at 04:30 Glucose (Glutose) 15 gm Q15M PRN BUCCAL DECREASED GLUCOSE; Start 03/10/18 at 04:30 Insulin Human NPH (Humulin N) 16 unit BID@08,20 SC Last administered on 03/11/18at 08:37; Admin Dose 16 UNIT; Start 03/10/18 at 20:00 Meds reviewed: Yes Allergies Coded Allergies: No Known Drug Allergy (Verified Allergy, Unknown, 03/02/18) Allergies Reviewed: Yes Labs/Studies Labs Reviewed: Reviewed by anesthesiologist Result Diagram: 03/11/18 0503/11/18 05 Laboratory Tests 03/11/18 05:26 Blood Bank Test 03/10/18 13:25 Antibody Screen NEGATIVE Blood Product Summary Counts Blood Type B POSITIVE Crossmatch Red Blood Cells test: N/A Studies: ECG, CXR Pre-procedure Exam Last vitals Vital Signs Date Temp Pulse Resp B/P (MAP) Pulse Ox O2 O2 Flow FiO2 Time Delivery Rate 12/27/18 98.6 86 18 141/66 97 Room Air 08:43 (91) Airway: Adequate mouth opening Mallampati: Mallampati II Teeth: Normal Lung: Normal Heart: Normal Anticipated Difficutly with IV: Anticipate Difficult IV Access ASA Physical Status ASA physical status: 3 Emergency: None Planned Anesthetic General/MAC: ETT Neuraxial: Other Nerve block: Other Planned Pain Management Parenteral pain med, Local by surgeon Pre-operative Attestations Prior to commencing anesthesia and surgery, the patient was re-evaluated, there was verification of: *The patient's identity *The results of appropriate recent lab work and preoperative vital signs *The above evaluation not changing prior to induction *Anesthetic plan, risk benefits, alternative and complications discussed with patient/family; questions answered; patient/family understands, accepts and wishes to proceed. MARIA LUZ CHAIREZ MD Mar 11, 2018 10:11
--- NOTE | 2018-03-11 12:08 | HPN ---
Date/Time of Note Date/Time of Note DATE: 03/11/18 TIME: 12:07 Interval H&P Admission Note Pt. seen H&P reviewed: No system changes The patient was anemic because of the bleeding. He received 1 unit of packed cells yesterday and has to on hold for the surgery today. I did discuss the procedure was him, the benefits, the risks, possible complications. He understood all of that and is agreeable to proceed I also did answer all the questions and concerns he has. KAELA DOZIER MD Mar 11, 2018 12:08
--- NOTE | 2018-03-11 12:17 | NUR ---
RN Notes: Around 1150 pt off unit for Cystoscopy and possible transurethral resection of bladder tumor and / or prostate under DR. Babcock. Pt remains alert and verbally responsive, no acute distress noted, denies pain/discomfort. CBI patent and draining well.
--- NOTE | 2018-03-11 14:41 | RADRPT ---
Vent Rate: 66 bpm RR Interval: 0 msec WV Interval: 180 msec QRS Duration: 72 msec QT Interval: 380 msec QTC Interval: 398 msec P-R-T [place]: 27 - 9 - 32 degrees Normal sinus rhythm Normal ECG Electronically Signed By: Raul Regan [id number]
[2018-03-11] MEDS ORDERED: DEXTROSE 5%-0.45% NACL 1,000 ML IV SCH (15:19)
--- NOTE | 2018-03-11 15:29 | OPR ---
Date/Time of Note Date/Time of Note DATE: 03/11/18 TIME: 15:23 Operative Report Procedure Date: Mar 11, 2018 Preoperative Diagnosis Gross hematuria and benign prostatic hypertrophy with urinary retention Postoperative Diagnosis Same pending pathology report Operation/Procedure Performed Cystoscopy, transurethral resection of prostate Surgeon see signature line [facility] [employer] medical imaging technologist Nino Anesthesia Type: general Anesthesiologist: MARIA LUZ CHAIREZ MD Estimated Blood Loss: other (400 mL) Transfusion 2 units of packed cells Specimen Prostatic tissue Grafts/Implants none Complications none Pt Condition Post Procedure: stable Disposition: PACU Indications Gross hematuria and urinary retention and very large prostate Procedure Description The patient was brought to the operating room and general anesthesia was induced. Timeout was done, the patient was identified by his name, birthdate and the procedure. The patient was given 2 g of Ancef IV at the start of the procedure. The genital area was then prepped and draped in the usual sterile manner. Cystoscopy was done with a 22 Macedonian cystoscope and it showed prostatic enlargement with obstruction. The bladder was trabeculated. There was no bladder tumors or stones. The bleeding was coming from the prostate and there were large blood clots in the bladder that had to be irrigated out. The cys toscope was then removed and the urethra was dilated with the [place] dilators up to #30 Macedonian. The 26 Macedonian bipolar resectoscope sheath was then introduced under direct vision through the penile urethra all the way to the bladder. Then the resection of the prostate was started. First the median lobe was resected then the right lateral lobe then the left lateral lobe and finally the anterior lobe as well as apical tissue. All the bleeders were electrocoagulated. All the prostatic chips were evacuated. Good hemostasis was obtained. The ureteral orifices as well as external sphincter were intact and safeguarded during the w hole procedure. At the end of the procedure the resectoscope was removed and #24 Macedonian three-way Dougherty catheter was inserted into the bladder. The balloon was inflated with 60 mL of sterile water. The catheter was connected to a drainage bag and continuous bladder irrigation was started in the operating room with normal saline. The patient was transferred to the recovery room in stable and satisfactory condition. KAELA DOZIER MD Mar 11, 2018 15:29
[2018-03-11] MEDS ORDERED: HYDROCODONE/APAP (5/325) TAB PO PRN (15:30)
--- NOTE | 2018-03-11 15:33 | NUR ---
PACU: Received patient in pacu via be s/p cystoscopy & TURP AAOX2, vss HOB @ semi lynn position breathing with ease , 3 way catheter intact & patent with bladder irrigations output light red. will continue to monitor.
--- NOTE | 2018-03-11 15:40 | PAC ---
Date/Time of Note Date/Time of Note DATE: 03/11/18 TIME: 15:39 Post-Anesthesia Notes Post-Anesthesia Note Last documented vital signs Vital Signs Date Temp Pulse Resp B/P (MAP) Pulse Ox O2 O2 Flow FiO2 Time Delivery Rate 03/11/18 98.6 86 18 141/66 97 Room Air 08:43 (91) Activity: WNL Respiratory function: WNL Cardiovascular function: WNL Mental status: Baseline Pain reasonably controlled: Yes Hydration appropriate: Yes Nausea/Vomiting absent: No MARIA LUZ CHAIREZ MD Mar 11, 2018 15:40
[2018-03-11] MEDS ORDERED: LABETALOL HCL 20MG INJ IV PRN (16:00)
[2018-03-11] MEDS ORDERED: LORAZEPAM 2 MG INJ IV PRN (16:00)
[2018-03-11] MEDS ORDERED: DIPHENHYDRAMINE 50 MG INJ IV PRN (16:00)
[2018-03-11] MEDS ORDERED: METOCLOPRAMIDE 10 MG INJ IV PRN (16:00)
[2018-03-11] MEDS ORDERED: MEPERIDINE 25 MG INJ IV PRN (16:00)
[2018-03-11] MEDS ORDERED: HYDROmorphONE 1 MG/5 ML IV SYRINGE IV PRN ×3 (16:00)
[2018-03-11] MEDS ORDERED: OXYCODONE/ACETAMINOPHEN (5/325) TAB PO PRN ×2 (16:00)
[2018-03-11] MEDS ORDERED: ONDANSETRON 4 MG INJ IV PRN (16:00)
[2018-03-11] MEDS ORDERED: EPHEDrine SULFATE 50 MG/5 ML SYG IV PRN (16:00)
[2018-03-11] MEDS ORDERED: hydrALAzine 20 MG INJ IV PRN (16:00)
[2018-03-11] MEDS ORDERED: FENTAnyl 50 MCG/ML VIAL IV PRN ×3 (16:00)
[2018-03-11] MEDS: CEFTRIAXONE 1 GM/50 ML (PMX) 50 ML IVPB SCH (16:18)
--- NOTE | 2018-03-11 16:36 | NUR ---
PACU: Transferred patient back to room via bed AAOX4 vss HOB @ semi lynn position, breathing with ease, 3 way catheter intact & patent with bladder irrigations output still light red , pain medications given, Rocephin 1 gm given, denies pain. Report given to MARLON Amato
--- NOTE | 2018-03-11 16:50 | NUR ---
RN Notes: Pt came back to unit S/P Cystoscopy and transurethral resection of prostate, pt appears sleepy, breathing even and unlabored, warm to touch, no s./sx of pain/discomfort. with 3 way catheter and continuos irrigation draining well reddish in color. Will continue to monitor
[2018-03-11] MEDS ORDERED: LORAZEPAM 2 MG INJ IV STA (17:14)
[2018-03-11] MEDS ORDERED: LORAZEPAM 4 MG/ML VIAL IV SCH (17:18)
--- NOTE | 2018-03-11 18:25 | PN ---
Date/Time of Note Date/Time of Note DATE: 03/11/18 TIME: 18:21 Assessment/Plan VTE Prophylaxis Risk score (from Ns)>0 risk: 7 SCD applied (from Ns): Yes Pharmacological prophylaxis: NA/contraindicated Pharm contraindication: bleeding (Hematuria) Lines/Catheters IV Catheter Type (from [facility]): Peripheral IV Urinary Cath still in place: Yes Reason Cath still needed: other (indicate) (Immediately post TURP) Assessment/Plan Problems: (1) Status post recent transurethral resection of prostate Status: Acute Comment: Patient is immediately post TURP after findings on cystoscopy. Given his underlying psychiatric illness will be a little bit of a challenge for the postoperative phase but will try and work with this as best we can. (2) UTI (urinary tract infection) Status: Acute Comment: Initial cultures are gram-negative rods sensitivities are pending. He remains on antibiotics for fine tune as soon as we have more sensitivities in place Qualifiers: Urinary tract infection type: acute cystitis Hematuria presence: with hematuria Qualified Codes: N30.01 - Acute cystitis with hematuria (3) BPH (benign prostatic hyperplasia) Status: Chronic Comment: Now post TURP. 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 Screens are approved and appropriate Qualifiers: Active/Remission status: currently active Current bipolar episode type: hypomanic Qualified Codes: F31.0 - Bipolar disorder, current episode hypomanic (6) Sepsis Status: Acute Comment: On antibiotics and improving nicely Qualifiers: Sepsis type: sepsis due to unspecified organism Qualified Codes: A41.9 - Sepsis, unspecified organism (7) Hypertension Status: Chronic Comment: Given that were now postop we can go ahead and come down on the dihydropyridine calcium channel vern, maintain the beta-vern, and go up on the АННА inhibitor. Qualifiers: Hypertension type: essential hypertension Qualified Codes: I10 - Essential (primary) hypertension (8) Hyperlipidemia Status: Chronic Comment: Noted. Statin therapy Qualifiers: Hyperlipidemia type: pure hypercholesterolemia Qualified Codes: E78.00 - Pure hypercholesterolemia, unspecified Result Diagram: 03/11/18 0526 03/11/18 05 Results 24hrs Laboratory Tests Test 03/10/18 19:55 03/10/18 21:23 03/11/18 02:17 03/11/18 05:26 Bedside Glucose 164 215 275 H White Blood 15.6 H Count Red Blood Count 2.73 L Hemoglobin 8.4 L Hematocrit 25.6 L Mean Corpuscular 93.8 Volume Mean Corpuscular 30.8 Hemoglobin Mean Corpuscular 32.8 Hemoglobin Aubrie nt Red Cell 13.5 Distribution Width Platelet Count 385 Mean Platelet 9.3 Volume Immature 0.600 H Granulocytes % Neutrophils % 83.6 H Lymphocytes % 5.5 L Monocytes % 9.4 Eosinophils % 0.6 Basophils % 0.3 Nucleated Red 0.0 Blood Cells % Immature 0.100 H Granulocytes # Neutrophils # 13.1 H Lymphocytes # 0.9 Monocytes # 1.5 H Eosinophils # 0.1 Basophils # 0.0 Nucleated Red 0.0 Blood Cells # Sodium Level 139 Potassium Level 4.7 Chloride Level 103 Carbon Dioxide 25 Level Anion Gap 11 Blood Urea 21 H Nitrogen Creatinine 1.09 Est Glomerular Filtrat Rate mL/min Glucose Level 268 #H Hemoglobin A1c 7.1 H Calcium Level 8.7 Total Bilirubin 1.2 Direct Bilirubin 0.00 Indirect 1.2 H Bilirubin Aspartate Amino 14 L Transf (AST/SGOT ) Alanine 19 Aminotransferase (ALT/SGPT) Alkaline 106 Phosphatase Total Protein 5.6 L Albumin 2.9 L Globulin 2.70 Albumin/Globulin 1.07 Ratio Test 03/11/18 07:47 03/11/18 09:57 03/11/18 11:44 03/11/18 17:48 Bedside Glucose 278 H 266 H 246 H 316 H Subjective 24 Hr Interval Summary Free Text/Dictation She is immediately post transurethral resection of the prostate with appropriate catheters in place. He has had some degree of confusion and on talking to him he states it is there at their Constitutional: no complaints Respiratory: no complaints Psychological: anxiety Exam/Review of Systems Vital Signs Vitals Vital Signs Date Temp Pulse Resp B/P (MAP) Pulse Ox O2 O2 Flow FiO2 Time Delivery Rate 03/11/18 99.2 99 120/60 94 Nasal 18:00 (80) Cannula 03/11/18 18 17:30 03/11/18 8.0 15:38 Intake and Output 03/10/18 03/10/18 03/11/18 1515:00 23:00 07:00 IntakeIntake Total 1100 ml OutputOutput Total 6250 ml 95991 ml BalanceBalance -5150 ml -36499 ml Exam Constitutional: alert (Not oriented) Respiratory: clear to auscultation, normal air movement Cardiovascular: regular rate and rhythm, nl pulses Gastrointestinal: soft, nl liver, spleen, non-tender Genitourinary - Male: other (Irrigating Dougherty catheter in place) Medications Medications Current Medications IV Flush (NS 3 ml) 3 ml PER PROTOCOL IV ; Start 03/10/18 at 04:30 Lorazepam (Ativan) 0.5 mg Q8H PRN PO ANXIETY; Start 03/10/18 at 04:30 Ondansetron HCl (Zofran Tab) 4 mg Q6H PRN PO NAUSEA AND/OR VOMITING; Start 03/10/18 at 04:30 Aspirin (Aspirin) 81 mg DAILY PO Last administered on 03/10/18at 09:42; Admin Dose 81 MG; Start 03/10/18 at 09:00 Acetaminophen (Tylenol Tab) 650 mg Q6H PRN PO PAIN LEVEL 1-3 OR FEVER Last a dministered on 03/10/18at 13:54; Admin Dose 650 MG; Start 03/10/18 at 04:30 Acetaminophen/ Hydrocodone Bitart ([place] (5/325)) 1 tab Q6H PRN PO PAIN LEVEL 4-6 Last administered on 03/10/18at 09:52; Admin Dose 1 TAB; Start 03/10/18 at 04:30 Docusate Sodium (Colace) 100 mg Q12H PRN PO CONSTIPATION; Start 03/10/18 at 04:30 Famotidine (Pepcid) 20 mg Q12 PO Last administered on 03/11/18at 08:37; Admin Dose 20 MG; Start 03/10/18 at 09:00 Cefepime HCl 50 ml @ 100 mls/hr Q12 IVPB Last administered on 03/11/18at 08:37; Admin Dose 100 MLS/HR; Start 03/10/18 at 09:00; Status Hold Atenolol (Tenormin) 25 mg DAILY PO Last administered on 03/11/18at 08:37; Admin Dose 25 MG; Start 03/10/18 at 09:00 Atorvastatin Calcium (Lipitor) 40 mg QHS PO Last administered on 03/10/18at 20:52; Admin Dose 40 MG; Start 03/10/18 at 21:00 [place] Carbonate ([place] Carbonate) 300 mg DAILY PO Last administered on 03/11/18at 08:37; Admin Dose 300 MG; Start 03/10/18 at 09:00 Diagnostic Test (Pha) (Accu-Chek) 1 ea 02 XX ; Start 03/11/18 at 02:00 Diagnostic Test (Pha) (Accu-Chek) 1 ea 2 HOURS AFTER MEALS XX Last administered on 03/10/18at 14:50; Admin Dose 1 EA; Start 03/10/18 at 10:00 Insulin Aspart (Novolog Insulin Pen) 6 unit WITH MEALS SC Last administered on 03/10/18at 16:41; Admin Dose 6 UNIT; Start 03/10/18 at 08:00 Insulin Aspart (Novolog Insulin Pen) NOVOLOG *MILD* ALGORITHM WITH MEALS BEDTIME SC Last administered on 03/10/18at 21:26; Admin Dose 1 UNIT; Start 03/10/18 at 08:00 Miscellaneous Information 1 ea NOTE XX ; Start 03/10/18 at 04:30 Glucose (Glutose) 15 gm Q15M PRN PO DECREASED GLUCOSE; Start 03/10/18 at 04:30 Glucose (Glutose) 22.5 gm Q15M PRN PO DECREASED GLUCOSE; Start 03/10/18 at 04:30 Dextrose (D50w Syringe) 25 ml Q15M PRN IV DECREASED GLUCOSE; Start 03/10/18 at 04:30 Dextrose (D50w Syringe) 50 ml Q15M PRN IV DECREASED GLUCOSE; Start 03/10/18 at 04:30 Glucagon (Glucagen) 1 mg Q15M PRN IM DECREASED GLUCOSE; Start 03/10/18 at 04:30 Glucose (Glutose) 15 gm Q15M PRN BUCCAL DECREASED GLUCOSE; Start 03/10/18 at 04:30 Insulin Human NPH (Humulin N) 16 unit BID@08,20 SC Last administered on 03/11/18at 08:37; Admin Dose 16 UNIT; Start 03/10/18 at 20:00 Ceftriaxone Sodium 50 ml @ 100 mls/hr Q24H IVPB Last administered on 03/11/18at 16:18; Admin Dose 100 MLS/HR; Start 03/11/18 at 16:00 Docusate Sodium (Colace) 100 mg BID PO ; Start 03/11/18 at 21:00 Magnesium Hydroxide (Milk Of Mag) 30 ml DAILY PRN PO CONSTIPATION; Start 03/11/18 at 15:30 Acetaminophen/ Hydrocodone Bitart ([place] (5/325)) 1 tab Q4H PRN PO MODERATE PAIN LEVEL 4-6; Start 03/11/18 at 15:30 Amlodipine Besylate (Norvasc) 2.5 mg DAILY PO ; Start 03/12/18 at 09:00; Status UNV Lisinopril (Zestril) 10 mg BID PO ; Start 03/11/18 at 21:00; Status UNV Lactated Ringer's 1,000 ml @ 50 mls/hr Q20H IV ; Start 03/11/18 at 18:30; Status UNV Insulin Aspart (Novolog Insulin Pen) 7 unit ONCE ONCE SC ; Start 03/11/18 at 18:30; Stop 03/11/18 at 18:31; Status UNV BENJA CHAVEZ MD Mar 11, 2018 18:25
[2018-03-11] MEDS ORDERED: HALOPERIDOL 5 MG INJ IM PRN (18:30)
[2018-03-11] MEDS ORDERED: INSULIN ASPART [NOVOLOG] 3 ML PEN SC ONE (18:30)
[2018-03-11] MEDS: LACTATED RINGER'S 1,000 ML IV SCH (18:31)
--- NOTE | 2018-03-11 18:58 | NUR ---
RN Notes: Around 171 pt woke up and suddenly became combative, trying to get out of bed, trying to pull out his tubes/IV, grabbing staff when tried to repositioned him, tried to calm him down, reoriented and provide diversional activities but ineffective, Dr. Paulino made aware around 1714 and received order to give Ativan IV x1 does and start on soft restraint, pt is self responsible, no next of kin, explained to pt regarding need restraint for safety. Applied soft wrist restraint on bilateral upper ext, checked circulation, safety measures rendered. Also Dr. Paulino made aware regarding blood sugar >300 received order. Noted pt Dougherty had blood clot flushed with Normal saline as ordered and draining well with reddish output, CBI continuously irrigating draining well. Will continue to monitor and will endorse for continuity of care.
[2018-03-11] MEDS: ATORVASTATIN 40 MG TAB PO SCH (21:17)
[2018-03-11] MEDS: DOCUSATE SODIUM 100 MG CAP PO SCH (21:19)
[2018-03-12] VITALS (10 sets, daily range): BP systolic 103–137; BP diastolic 48–76; PULSE 60–90; RESP 16–24
[2018-03-12] MEDS: ACCU-CHEK XX SCH ×4 (02:00→20:56)
--- NOTE | 2018-03-12 07:36 | NUR ---
Dr. Fraire contacted for blood glucose above 300. No new orders given.
--- NOTE | 2018-03-12 07:44 | NUR ---
CBI inflow:[id number] and outflow:[id number] Total urine output is 1100ml
--- NOTE | 2018-03-12 07:57 | PN ---
Date/Time of Note Date/Time of Note DATE: 03/12/18 TIME: 07:52 Assessment/Plan Lines/Catheters IV Catheter Type (from [facility]): Peripheral IV Folwers in Place (from [facility]): Yes Cont'd flowers catheter reason: other (indicate) (Urological surgery) Assessment/Plan Chief Complaint/Hosp Course 72-year-old male who was admitted because of gross hematuria and urinary retention. He was found to have a very large prostate that is obstructing him and there was no bladder tumor. He underwent transurethral resection of the prostate on 03/11/2018. He was supposed to have the automatic inflatable devices to prevent phlebitis but that was not done even though the order was there. We will slow down the bladder irrigation and later on discontinue it. Then we may consider sending him home with a Flowers catheter and have him come to the office to remove it. His urine culture showed 100,000 gram-negative rods. He is already on ceftriaxone. We will await the results of the sensitivity and decide if we have to change the antibiotic. Subjective 24 Hr Interval Summary Patient complains of sore throat. He was confused last night and was restrained Exam/Review of Systems Vital Signs Vitals Vital Signs Date Temp Pulse Resp B/P (MAP) Pulse Ox O2 O2 Flow FiO2 Time Delivery Rate 03/12/18 97.8 79 18 125/60 98 Room Air 06:00 (81) 03/11/18 8.0 15:38 Intake and Output 03/11/18 03/11/18 03/12/18 1515:00 23:00 07:00 IntakeIntake Total 80 ml 2400 ml 525 ml OutputOutput Total 2950 ml 2900 ml 3300 ml BalanceBalance -2870 ml -500 ml -2775 ml Exam Free Text/Dictation The Flowers catheter is draining light pink urine with the bladder irrigation. Results Result Diagram: 03/12/18 0427 03/12/18 0427 KAELA DOZIER MD Mar 12, 2018 07:57
[2018-03-12] MEDS ORDERED: CEPASTAT LOZENGE MT PRN (08:00)
[2018-03-12] MEDS: INSULIN ASPART [NOVOLOG] 3 ML PEN SC SCH ×7 (08:06→20:56)
[2018-03-12] MEDS: NPH, HUMAN INSULIN ISOPHANE 3ML VIAL SC SCH ×2 (08:08→20:38)
[2018-03-12] MEDS: DOCUSATE SODIUM 100 MG CAP PO SCH ×2 (08:54→20:54)
[2018-03-12] MEDS: ATENOLOL 25 MG TAB PO SCH (08:54)
[2018-03-12] MEDS: LISINOPRIL 10 MG TAB PO SCH ×2 (08:54→20:55)
[2018-03-12] MEDS: ASPIRIN 81 MG TAB PO SCH (08:54)
[2018-03-12] MEDS: LITHIUM CARBONATE 300 MG CAP PO SCH (08:55)
[2018-03-12] MEDS: MAGNESIUM HYDROXIDE 30ML CUP PO PRN (08:58)
[2018-03-12] MEDS: FAMOTIDINE 20 MG TAB PO SCH ×2 (08:58→20:55)
--- NOTE | 2018-03-12 09:04 | NUR ---
PT NOTE Therapy day number 2 Subjective Denies pain Pain Scale NUMERIC Pain Intensity 0 (0-10) Patient Stated Goal for Pain Relief 0 (0-10) Pain Level Comment no c/o pain Pre Treatment Vital Signs Stable Yes Exercise Assessment Label Bilat Lower Extremity Exercise Type Active ROM Additional Exercise Comments STS x2, standing weight shifting, bed mobility tr Exercise Start Time 09:04 Exercise End Time 09:19 Total Exercise Time 15 min (8-127) Transfer Training Start Time 09:19 Supine to Sit Moderate Assist Transfer Sit to Stand Ability Contact Guard Assist Bed Mobility Sit to Supine Moderate Assist Sitting Tolerance 20 min Additional Mobility Comments FWW, 2P for safety on transfers due to impulsivity and less attentive Transfer Training End Time 09:42 Total Transfer Training Time 23 min (8-127) Gait Assist Levels Minimum Assist Assistive Devices Front Wheel Walker Ambulation Distance 2 feet Additional Gait Comments 2' x4 sidestepping and forward stepping, small shuffling steps, impulsive Static Sitting Balance Good Dynamic Sitting Balance Fair plus Standing Static Balance Fair plus Dynamic Standing Balance Fair Additional Balance Assessments Comments FWW Safety Judgement Poor Activity Tolerance Fair Equipment Present A pump Drains Dougherty Catheter IV pump Additional Equipment Present bilateral rail pads Post Treatment Pain Intensity 0 0-10 Additional Post Treatment Comment See Below Total Treament Time 38 min (8-127) Total Minutes 38 Total Units 3 PT Technical Record Comment PT NOTE S: Pt agreeable to PT with encouragement, cleared for PT per RN JULIANO. RN states pt has been combative with nsg but is agreeable this AM. O: Pt received semifowler in bed in no apparent distress. Performed thera ex, bed mobility and transfer tr per tech record above with Mod to CGA using FWW. Pt with waddling/shuffling gait, decreased step length/foot clearance/knee and hip flex during stance, absent heel-toe, increased postural sway. Pt impulsive and intermittently agitated/agreeable throughout tx. Pt refusing add'l thera ex. Max encouragement req'd for BTB due to pt stating he wants to "get out of here", then upon sitting at EOB, pt impulsively stood up without FWW. Pt BTB and positioned for comfort post-tx with call light and needs in reach, bed alarm armed, in no apparent distress, RN informed re pt status. A: Pt erin tx fairly, limited by impulsivity and decreased participation P: Cont POC
[2018-03-12] MEDS: AMLODIPINE 2.5 MG TAB PO SCH (09:13)
--- NOTE | 2018-03-12 09:51 | NUR ---
Report called to Karol in [facility]. Requested pt. after 11 due to multiple transfers.
[2018-03-12] MEDS ORDERED: LITHIUM CARBONATE 150 MG CAP PO ONE (11:00)
--- NOTE | 2018-03-12 11:53 | NUR ---
Transporter picking up pt. now to transfer to [facility].
--- NOTE | 2018-03-12 12:00 | NUR ---
Received patient at this time in no acute distress. Bladder irrigation infusing. VSS. Will monitor.
--- NOTE | 2018-03-12 13:20 | PN ---
Date/Time of Note Date/Time of Note DATE: 03/12/18 TIME: 13:16 Assessment/Plan VTE Prophylaxis Risk score (from Ns)>0 risk: 5 SCD applied (from Ns): Yes Pharmacological prophylaxis: other Pharm contraindication: bleeding (hematuria, recent turp) Lines/Catheters IV Catheter Type (from [facility]): Peripheral IV Urinary Cath still in place: Yes Reason Cath still needed: other (indicate) (post turp) Assessment/Plan Result Diagram: 03/12/187 03/12/18426 Results 24hrs Laboratory Tests Test 03/11/18 15:37 03/11/18 17:48 03/11/18 21:11 03/12/18 03:21 Bedside Glucose 219 316 H 306 H 243 H Test 03/12/18 04:27 03/12/18 08:00 03/12/18 10:09 03/12/18 12:34 White Blood 13.8 H Count Red Blood Count 3.04 L Hemoglobin 9.3 L Hematocrit 27.4 L Mean Corpuscular 90.1 Volume Mean Corpuscular 30.6 Hemoglobin Mean Corpuscular 33.9 Hemoglobin Aubrie nt Red Cell 13.9 Distribution Width Platelet Count 368 Mean Platelet 9.3 Volume Immature 0.700 H Granulocytes % Neutrophils % 87.5 H Lymphocytes % 4.8 L Monocytes % 6.6 Eosinophils % 0.1 Basophils % 0.3 Nucleated Red 0.0 Blood Cells % Immature 0.100 H Granulocytes # Neutrophils # 12.1 H Lymphocytes # 0.7 L Monocytes # 0.9 Eosinophils # 0.0 Basophils # 0.0 Nucleated Red 0.0 Blood Cells # Sodium Level 139 Potassium Level 4.9 Chloride Level 106 Carbon Dioxide 25 Level Anion Gap 8 Blood Urea 21 H Nitrogen Creatinine 0.98 Est Glomerular Filtrat Rate mL/min Glucose Level 227 H Calcium Level 8.6 [place] Level 0.4 L Bedside Glucose 216 223 H 252 H Subjective 24 Hr Interval Summary Free Text/Dictation post op turp as noted. post op agitation has resolved and he is back to baseline. lithium dosage is now correct. catheter drainage light pink will need to mobilize him after being in hosp on and off past few weeks, dc home when sronger per g.u. diabetes, control poor would leave as is for now ashd, no sx alert, oriented. able to discuss surgery with him and findings and outcome lungs clear, abd soft, no edema Exam/Review of Systems Vital Signs Vitals Vital Signs Date Temp Pulse Resp B/P (MAP) Pulse Ox O2 O2 Flow FiO2 Time Delivery Rate 03/12/18 98.1 68 18 119/48 98 Room Air 12:19 (71) 03/11/18 8.0 15:38 Intake and Output 03/11/18 03/11/18 03/12/18 1515:00 23:00 07:00 IntakeIntake Total 80 ml 2400 ml 525 ml OutputOutput Total 2950 ml 2900 ml 3300 ml BalanceBalance -2870 ml -500 ml -2775 ml Medications Medications Current Medications IV Flush (NS 3 ml) 3 ml PER PROTOCOL IV ; Start 03/10/18 at 04:30 Lorazepam (Ativan) 0.5 mg Q8H PRN PO ANXIETY; Start 03/10/18 at 04:30 Ondansetron HCl (Zofran Tab) 4 mg Q6H PRN PO NAUSEA AND/OR VOMITING; Start 03/10/18 at 04:30 Aspirin (Aspirin) 81 mg DAILY PO Last administered on 03/12/18at 08:54; Admin Dose 81 MG; Start 03/10/18 at 09:00 Acetaminophen (Tylenol Tab) 650 mg Q6H PRN PO PAIN LEVEL 1-3 OR FEVER Last administered on 03/10/18at 13:54; Admin Dose 650 MG; Start 03/10/18 at 04:30 Acetaminophen/ Hydrocodone Bitart ([place] (5/325)) 1 tab Q6H PRN PO PAIN LEVEL 4-6 Last administered on 03/10/18at 09:52; Admin Dose 1 TAB; Start 03/10/18 at 04:30 Docusate Sodium (Colace) 100 mg Q12H PRN PO CONSTIPATION; Start 03/10/18 at 04:30 Famotidine (Pepcid) 20 mg Q12 PO Last administered on 03/12/18at 08:58; Admin Dose 20 MG; Start 03/10/18 at 09:00 Cefepime HCl 50 ml @ 100 mls/hr Q12 IVPB Last administered on 03/11/18at 08:37; Admin Dose 100 MLS/HR; Start 03/10/18 at 09:00; Status Hold Atenolol (Tenormin) 25 mg DAILY PO Last administered on 03/12/18at 08:54; Admin Dose 25 MG; Start 03/10/18 at 09:00 Atorvastatin Calcium (Lipitor) 40 mg QHS PO Last administered on 03/11/18at 21:17; Admin Dose 40 MG; Start 03/10/18 at 21:00 Diagnostic Test (Pha) (Accu-Chek) 1 ea 02 XX ; Start 03/11/18 at 02:00 Diagnostic Test (Pha) (Accu-Chek) 1 ea 2 HOURS AFTER MEALS XX Last administered on 03/10/18at 14:50; Admin Dose 1 EA; Start 03/10/18 at 10:00 Insulin Aspart (Novolog Insulin Pen) 6 unit WITH MEALS SC Last administered on 03/12/18at 12:36; Admin Dose 6 UNIT; Start 03/10/18 at 08:00 Insulin Aspart (Novolog Insulin Pen) NOVOLOG *MILD* ALGORITHM WITH MEALS BEDTIME SC Last administered on 03/12/18at 12:37; Admin Dose 3 UNIT; Start 03/10/18 at 08:00 Miscellaneous Information 1 ea NOTE XX ; Start 03/10/18 at 04:30 Glucose (Glutose) 15 gm Q15M PRN PO DECREASED GLUCOSE; Start 03/10/18 at 04:30 Glucose (Glutose) 22.5 gm Q15M PRN PO DECREASED GLUCOSE; Start 03/10/18 at 04:30 Dextrose (D50w Syringe) 25 ml Q15M PRN IV DECREASED GLUCOSE; Start 03/10/18 at 04:30 Dextrose (D50w Syringe) 50 ml Q15M PRN IV DECREASED GLUCOSE; Start 03/10/18 at 04:30 Glucagon (Glucagen) 1 mg Q15M PRN IM DECREASED GLUCOSE; Start 03/10/18 at 04:30 Glucose (Glutose) 15 gm Q15M PRN BUCCAL DECREASED GLUCOSE; Start 03/10/18 at 0 4:30 Insulin Human NPH (Humulin N) 16 unit BID@08,20 SC Last administered on 03/12/18at 08:08; Admin Dose 16 UNIT; Start 03/10/18 at 20:00 Ceftriaxone Sodium 50 ml @ 100 mls/hr Q24H IVPB Last administered on 03/11/18at 16:18; Admin Dose 100 MLS/HR; Start 03/11/18 at 16:00 Docusate Sodium (Colace) 100 mg BID PO Last administered on 03/12/18 08:54; Admin Dose 100 MG; Start 03/11/18 at 21:00 Magnesium Hydroxide (Milk Of Mag) 30 ml DAILY PRN PO CONSTIPATION Last administered on 03/12/18 08:58; Admin Dose 30 ML; Start 03/11/18 at 15:30 Acetaminophen/ Hydrocodone Bitart ([place] (5/325)) 1 tab Q4H PRN PO MODERATE PAIN LEVEL 4-6; Start 03/11/18 at 15:30 Amlodipine Besylate (Norvasc) 2.5 mg DAILY PO Last administered on 03/12/18 09:13; Admin Dose 2.5 MG; Start 03/12/18 at 09:00 Lisinopril (Zestril) 10 mg BID PO Last administered on 03/12/18 08:54; Admin Dose 10 MG; Start 03/11/18 at 21:00 Lactated Ringer's 1,000 ml @ 50 mls/hr Q20H IV Last administered on 03/11/18 18:31; Admin Dose 50 MLS/HR; Start 03/11/18 at 18:30 Haloperidol (Haldol) 1 mg Q6 PRN IM AGITATION/ANXIETY; Start 03/11/18 at 18:30; Stop 03/13/18 at 18:29 Phenol (Cepastat Lozenge) 1 lozenge Q1H PRN MT sore throat Last administered on 03/12/18at 08:55; Admin Dose 1 LOZENGE; Start 03/12/18 at 08:00 [place] Carbonate ([place] Carbonate) 450 mg DAILY PO ; Start 03/13/18 at 09:00 LILIAM IVERSON MD Mar 12, 2018 13:20
[2018-03-12] MEDS: LACTATED RINGER'S 1,000 ML IV SCH (14:51)
[2018-03-12] MEDS: CEFTRIAXONE 1 GM/50 ML (PMX) 50 ML IVPB SCH (15:28)
--- NOTE | 2018-03-12 18:23 | NUR ---
EOSS Patient in no acute distress during shift. Patient remains on CBI, light pink in color. Encouraging PO fluids. Accuchecks done ACHS and 2 hours postprandial. Patient denies pain. VSS. IVF infusing. No adverse reaction to IV ABX noted. Hourly rounds done, call light in reach, will monitor and endorse plan of care to oncoming shift.
[2018-03-12] MEDS: ATORVASTATIN 40 MG TAB PO SCH (20:55)
[2018-03-13] MEDS: ACCU-CHEK XX SCH ×4 (02:00→20:00)
[2018-03-13 02:02] VITALS: BP 127/62; PULSE 63; RESP 20
--- NOTE | 2018-03-13 07:02 | NUR ---
VSS. Pt didn't complain of pain. Due meds given. IV lactated ringer's infusing. CBI maintained; draining clear, light red output. Call light within reach. Pt given soup from the kitchen at the start of shift. No SC insulin given; scheduled NPH given. Pt says he is "hopeless"; will call the dr for possible psych consult.
--- NOTE | 2018-03-13 07:09 | NUR ---
Called Dr. Paulino, spoke with the Taper/Finisher. Left message to call back. Endorsed to next shift.
[2018-03-13] MEDS: INSULIN ASPART [NOVOLOG] 3 ML PEN SC SCH ×7 (08:00→21:00)
[2018-03-13 08:44] VITALS: BP 135/61; PULSE 67; RESP 18
[2018-03-13] MEDS: NPH, HUMAN INSULIN ISOPHANE 3ML VIAL SC SCH ×2 (08:57→20:00)
[2018-03-13] MEDS: DOCUSATE SODIUM 100 MG CAP PO SCH ×2 (08:59→20:52)
[2018-03-13] MEDS: FAMOTIDINE 20 MG TAB PO SCH ×2 (08:59→20:42)
[2018-03-13] MEDS: AMLODIPINE 2.5 MG TAB PO SCH (08:59)
[2018-03-13] MEDS: LITHIUM CARBONATE 150 MG CAP PO SCH (08:59)
[2018-03-13] MEDS: LISINOPRIL 10 MG TAB PO SCH ×2 (09:00→20:42)
[2018-03-13] MEDS: ASPIRIN 81 MG TAB PO SCH (09:01)
[2018-03-13] MEDS: ATENOLOL 25 MG TAB PO SCH (09:27)
[2018-03-13] MEDS: LACTATED RINGER'S 1,000 ML IV SCH ×2 (10:30→12:37)
--- NOTE | 2018-03-13 12:09 | PSY ---
Date/Time of Note Date/Time of Note DATE: 03/13/18 TIME: 12:03 Psychiatric Subjective Eval Consent Pt consented to telemedicine: No Subjective Evaluation Patient location: inpatient Chief Complaint: BIB [id number] for AP and hematuria History of present illness Patient is a 72-year-old male with underlying medical history of coronary artery disease with stent, admitted to the hospital because of gross hematuria.. On a [id number] evaluation patient reports feeling depressed, because of his medical condition, he however denies suicidal ideation and contracted for safety. Patient also admits auditory hallucination telling him randoms stuff but NOT to kill himself. Discussed risk and benefits of antipsychotic Abilify and also antidepressant Lexapro however patient declined states he has some too many medication and is now willing to take any additional medication. Patient states his symptoms are situational and he will get better as soon as he is discharged from the hospital. Past psychiatric history History of bipolar disorder Medical history Problems Medical Problems: (1) Bipolar disorder Status: Chronic (2) BPH (benign prostatic hyperplasia) Status: Chronic (3) Constipation Status: Acute (4) Diabetes mellitus type 2 in obese Status: Chronic (5) Hematuria Status: Acute (6) Hyperlipidemia Status: Chronic (7) Hypertension Status: Chronic (8) Sepsis Status: Acute (9) UTI (urinary tract infection) Status: Acute Allergies: Coded Allergies: No Known Drug Allergy (Verified Allergy, Unknown, 03/02/18) Substance Abuse Substance abuse history: No Prior substance abuse treatmen: No Social History Marital status: single DPA/Conservatorship: No Psychiatric Objective Eval Review of Systems: Review of Systems: Not Applicable Physical Examination: Physical Examination: Not Applicable Mental Status Examination: Appearance: Poor Hygiene Eye Contact: Fair Psychomotor Activity: Slow Behavior: Cooperative Speech: Soft AFFECT: Flat Mood: Depressed Though Process: Linear Thought Content: Hallucinations Orientation: x4 Cognition: Alert Insight: Moderate Judgement: Moderate Attention Span: Distractible Laboratory Results Laboratory Tests Test 03/11/18 15:37 03/11/18 17:48 03/11/18 21:11 03/12/18 03:21 Bedside Glucose 219 mg/dL 316 mg/dL 306 mg/dL 243 mg/dL Test 03/12/18 04:27 03/12/18 08:00 03/12/18 10:09 03/12/18 12:34 White Blood 13.8 10^3/ul Count Red Blood Count 3.04 10^6/ul Hemoglobin 9.3 g/dl Hematocrit 27.4 % Mean Corpuscular 90.1 fl Volume Mean Corpuscular 30.6 pg Hemoglobin Mean Corpuscular 33.9 g/dl Hemoglobin Aubrie nt Red Cell 13.9 % Distribution Width Platelet Count 368 10^3/UL Mean Platelet 9.3 fl Volume Immature 0.700 % Granulocytes % Neutrophils % 87.5 % Lymphocytes % 4.8 % Monocytes % 6.6 % Eosinophils % 0.1 % Basophils % 0.3 % Nucleated Red 0.0 /100WBC Blood Cells % Immature 0.100 10^3/ul Granulocytes # Neutrophils # 12.1 10^3/ul Lymphocytes # 0.7 10^3/ul Monocytes # 0.9 10^3/ul Eosinophils # 0.0 10^3/ul Basophils # 0.0 10^3/ul Nucleated Red 0.0 10^3/ul Blood Cells # Sodium Level 139 mmol/L Potassium Level 4.9 mmol/L Chloride Level 106 mmol/L Carbon Dioxide 25 mmol/L Level Anion Gap 8 Blood Urea 21 mg/dl Nitrogen Creatinine 0.98 mg/dl Est Glomerular mL/min Filtrat Rate mL/min Glucose Level 227 mg/dl Calcium Level 8.6 mg/dl [place] Level 0.4 mmol/L Bedside Glucose 216 mg/dL 223 mg/dL 252 mg/dL Test 03/12/18 15:27 03/12/18 17:50 03/12/18 20:35 03/13/18 06:21 Bedside Glucose 171 mg/dL 134 mg/dL 129 mg/dL White Blood 8.2 10^3/ul Count Red Blood Count 2.96 10^6/ul Hemoglobin 9.1 g/dl Hematocrit 27.7 % Mean Corpuscular 93.6 fl Volume Mean Corpuscular 30.7 pg Hemoglobin Mean Corpuscular 32.9 g/dl Hemoglobin Aubrie nt Red Cell 13.7 % Distribution Width Platelet Count 375 10^3/UL Mean Platelet 9.1 fl Volume Immature 1.300 % Granulocytes % Neutrophils % 66.7 % Lymphocytes % 13.9 % Monocytes % 8.8 % Eosinophils % 8.8 % Basophils % 0.5 % Nucleated Red 0.0 /100WBC Blood Cells % Immature 0.110 10^3/ul Granulocytes # Neutrophils # 5.5 10^3/ul Lymphocytes # 1.1 10^3/ul Monocytes # 0.7 10^3/ul Eosinophils # 0.7 10^3/ul Basophils # 0.0 10^3/ul Nucleated Red 0.0 10^3/ul Blood Cells # Sodium Level 139 mmol/L Potassium Level 4.3 mmol/L Chloride Level 107 mmol/L Carbon Dioxide 28 mmol/L Level Anion Gap 4 Blood Urea 22 mg/dl Nitrogen Creatinine 0.99 mg/dl Est Glomerular mL/min Filtrat Rate mL/min Glucose Level 78 mg/dl Calcium Level 8.5 mg/dl Test 03/13/18 08:49 03/13/18 10:43 Bedside Glucose 72 mg/dL 101 mg/dL Assessment and Plan Assessment/Diagnosis Diagnosis Bipolar disorder by history depressed type Recommendation/Plan Medication Management Patient is currently on lithium. He refused for any additional medications to be added , explained risk and benefits of antipsychotic and antidepressant but he declined Multiple antipsychotics: No Psychotherapy Provide supportive therapy Discharge Disposition: Other Legal Status: Voluntary (Patient does not meet criteria for 5150 hold) SILVANA SMITH NP Mar 13, 2018 12:09
--- NOTE | 2018-03-13 12:25 | PN ---
Date/Time of Note Date/Time of Note DATE: 03/13/18 TIME: 12:20 Assessment/Plan Lines/Catheters IV Catheter Type (from [facility]): Peripheral IV Flowers in Place (from [facility]): Yes Cont'd flowers catheter reason: other (indicate) (Urological surgery) Assessment/Plan Chief Complaint/Hosp Course 72-year-old male who was admitted because of gross hematuria and urinary retention. He was found to have a very large prostate that is obstructing him and there was no bladder tumor. He underwent transurethral resection of the prostate on 03/11/2018. We will stop the bladder irrigation . If the urine remains clear I will discontinue the Flowers catheter in the morning and then if he voids he could go home. Since his urine culture is positive continue the antibiotic as well Subjective 24 Hr Interval Summary The patient is comfortable, he is status post transurethral resection of prostate. He has a Flowers catheter with continuous bladder irrigation and the return is clear to clear pink Exam/Review of Systems Vital Signs Vitals Vital Signs Date Temp Pulse Resp B/P (MAP) Pulse Ox O2 O2 Flow FiO2 Time Delivery Rate 03/13/18 98.3 67 18 135/61 97 Room Air 08:44 (85) 03/11/18 8.0 15:38 Intake and Output 03/12/18 03/12/18 03/13/18 1515:00 23:00 07:00 IntakeIntake Total 3995 ml 4200 ml 6775 ml OutputOutput Total 2810 ml 6300 ml 6550 ml BalanceBalance 1185 ml -2100 ml 225 ml Exam Free Text/Dictation Patient is afebrile, Flowers catheter is draining well and the return from the irrigation is clear to clear pink. I will stop the irrigation and keep the catheter 1 more day then discontinue the Flowers catheter and if the patient voids well then he could go home. Results Result Diagram: 03/13/18 0621 03/13/18 0621 KAELA DOZIER MD Mar 13, 2018 12:25
[2018-03-13] MEDS ORDERED: INSULIN ASPART [NOVOLOG] 3 ML PEN SC ONE (13:00)
--- NOTE | 2018-03-13 13:34 | NUR ---
Blood sugar today 72 before breakfast and 101 2hr post meal ,74 before lunch .2 units of NovoLog given instead 6 with lunch once per order.Will continue to monitor
[2018-03-13 14:00] VITALS: BP_SYST 119; BP_SYST 137; BP_DIAS 59; BP_DIAS 86; PULSE 60; PULSE 89; RESP 16
--- NOTE | 2018-03-13 14:40 | NUR ---
PT NOTE [facility] Patient: Alvina Rubio : 1945 Age/Sex: 72/M Unit#: [id number] Room/Bed: 5538/A User: Maggy De La Cruz PTA Date: 03/13/18 14:15 Type: PT Technical Record Therapy day number 3 Subjective Denies pain Pain Scale NUMERIC Pain Intensity 0 (0-10) Patient Stated Goal for Pain Relief 0 (0-10) Pain Level Comment denied pain Transfer Training Start Time 14:15 Supine to Sit Contact Guard Assist Transfer Sit to Stand Ability Contact Guard Assist Bed Mobility Sit to Supine Minimum Assist Additional Mobility Comments HOB elevated, used BR; STS with FWW; min A with B LEs d/t weakness Transfer Training End Time 14:25 Total Transfer Training Time 10 min (8-127) Gait Training Start Time 14:26 Gait Assist Levels Contact Guard Assist Assistive Devices Front Wheel Walker Ambulation Distance 35 feet Additional Gait Comments reciprocal gait, NBOS, decreased hortensia, VCs to maintain close prox to AD Gait Training End Time 14:40 Total Gait Training Treatment Time 14 min (8-127) Static Sitting Balance Good Dynamic Sitting Balance Fair plus Standing Static Balance Fair plus Dynamic Standing Balance Fair Additional Balance Assessments Comments with FWW Safety Judgement Fair Activity Tolerance Fair Equipment Present A pump Dougherty Catheter IV pump Additional Equipment Present CBI Post Treatment Pain Intensity 0 0-10 Additional Post Treatment Comment see PT note Total Treament Time 24 min (8-127) Total Minutes 24 Total Units 2 PT Technical Record Comment PT NOTE S: Pt denied any pain. "I'm so uncomfortable. I need to get up." Agreed to skilled PT. Cleared by MARLON D[place]. O: Received awake in semi-lynn. See tech record for assist levels. Trenafered to EOB with HOB elevated, used BR. EOB sitting; VCs on scooting. STS with FWW. Gait training with FWW, reciprocal gait, decreased hortensia, NBOS, VCs on maintaining close proximity to AD and forward gaze; pt demo'd good understanding/fair return. Returned back to EOB. Transfered back to supine, min A with B LEs. VCs on hand placement for repositioning to HOB. Positioned in semi-lynn, call light and all necessities within reach, SCDs on, bed alarm on. Informed RN. A: Pt erin tx fairly. Improved transfer assist levels. Required VCs on maintaining close prox to AD as safety precaution. 2PA for safety as pt is slighly impulsive and to help manage equipment. P: Continue with POC. PT IS CLEARED TO BATHROOM WITH NSG.
--- NOTE | 2018-03-13 15:09 | PN ---
Date/Time of Note Date/Time of Note DATE: 03/13/18 TIME: 15:04 Assessment/Plan VTE Prophylaxis [place] [facility] risk: 6 SCD applied [place] [facility] Yes Pharmacological prophylaxis: heparin Lines/Catheters IV Catheter Type (from [facility]): Peripheral IV Urinary Cath still in place: Yes Reason Cath still needed: urinary retention Assessment/Plan Problems: (1) BPH (benign prostatic hyperplasia) Status: Chronic Comment: Postop and doing well. Anticipate possible discharge tomorrow Qualifiers: Lower urinary tract symptom presence: symptoms present Lower urinary tract symptom detail: incomplete bladder emptying Qualified Codes: N40.1 - Benign prostatic hyperplasia with lower urinary tract symptoms; R39.14 - Feeling of incomplete bladder emptying (2) Abnormal prostate specific antigen (PSA) Status: Chronic Comment: Pending biopsy from the TURP (3) UTI due to Klebsiella species Status: Acute Comment: On appropriate antibiotics and responding nicely (4) Hypertension Status: Chronic Comment: Adequate control Qualifiers: Hypertension type: essential hypertension Qualified Codes: I10 - Essential (primary) hypertension (5) Bipolar disorder Status: Chronic Comment: Stabilizing the more we get away from anesthetic agents Qualifiers: Active/Remission status: currently active Current bipolar episode type: hypomanic Qualified Codes: F31.0 - Bipolar disorder, current episode hypomanic (6) Diabetes mellitus type 2 in obese Status: Chronic Comment: Adequate control (7) Hyperlipidemia Status: Chronic Comment: Continue with statin therapy Qualifiers: Hyperlipidemia type: pure hypercholesterolemia Qualified Codes: E78.00 - Pure hypercholesterolemia, unspecified Result Diagram: 03/13/18 0621 03/13/18 0621 Results 24hrs Laboratory Tests Test 03/12/18 15:27 03/12/18 17:50 03/12/18 20:35 03/13/18 06:21 Bedside Glucose 171 134 129 White Blood 8.2 # Count Red Blood Count 2.96 L Hemoglobin 9.1 L Hematocrit 27.7 L Mean Corpuscular 93.6 Volume Mean Corpuscular 30.7 Hemoglobin Mean Corpuscular 32.9 Hemoglobin Aubrie nt Red Cell 13.7 Distribution Width Platelet Count 375 Mean Platelet 9.1 Volume Immature 1.300 H Granulocytes % Neutrophils % 66.7 Lymphocytes % 13.9 L Monocytes % 8.8 Eosinophils % 8.8 H Basophils % 0.5 Nucleated Red 0.0 Blood Cells % Immature 0.110 H Granulocytes # Neutrophils # 5.5 Lymphocytes # 1.1 Monocytes # 0.7 Eosinophils # 0.7 H Basophils # 0.0 Nucleated Red 0.0 Blood Cells # Sodium Level 139 Potassium Level 4.3 Chloride Level 107 Carbon Dioxide 28 Level Anion Gap 4 L Blood Urea 22 H Nitrogen Creatinine 0.99 Est Glomerular Filtrat Rate mL/min Glucose Level 78 # Calcium Level 8.5 Test 03/13/18 08:49 03/13/18 10:43 03/13/18 12:37 03/13/18 14:30 Bedside Glucose 72 101 74 92 Subjective 24 Hr Interval Summary Free Text/Dictation Patient reports that he is feeling relatively well is getting up and around Constitutional: no complaints Respiratory: no complaints Cardiovascular: no complaints Gastrointestinal: no complaints Exam/Review of Systems Vital Signs Vitals Vital Signs Date Temp Pulse Resp B/P (MAP) Pulse Ox O2 O2 Flow FiO2 Time Delivery Rate 03/13/18 98.3 67 18 135/61 97 Room Air 08:44 (85) 03/11/18 8.0 15:38 Intake and Output 03/12/18 03/12/18 03/13/18 1515:00 23:00 07:00 IntakeIntake Total 3995 ml 4200 ml 6775 ml OutputOutput Total 2810 ml 6300 ml 6550 ml BalanceBalance 1185 ml -2100 ml 225 ml Exam Constitutional: alert, oriented Respiratory: clear to auscultation, normal air movement Cardiovascular: regular rate and rhythm, nl pulses Medications Medications Current Medications IV Flush (NS 3 ml) 3 ml PER PROTOCOL IV ; Start 03/10/18 at 04:30 Lorazepam (Ativan) 0.5 mg Q8H PRN PO ANXIETY; Start 03/10/18 at 04:30 Ondansetron HCl (Zofran Tab) 4 mg Q6H PRN PO NAUSEA AND/OR VOMITING; Start 03/10/18 at 04:30 Aspirin (Aspirin) 81 mg DAILY PO Last administered on 03/13/18at 09:01; Admin Dose 81 MG; Start 03/10/18 at 09:00 Acetaminophen (Tylenol Tab) 650 mg Q6H PRN PO PAIN LEVEL 1-3 OR FEVER Last administered on 03/10/18at 13:54; Admin Dose 650 MG; Start 03/10/18 at 04:30 Acetaminophen/ Hydrocodone Bitart ([place] (5/325)) 1 tab Q6H PRN PO PAIN LEVEL 4-6 Last administered on 03/10/18at 09:52; Admin Dose 1 TAB; Start 03/10/18 at 04:30 Docusate Sodium (Colace) 100 mg Q12H PRN PO CONSTIPATION; Start 03/10/18 at 04:30 Famotidine (Pepcid) 20 mg Q12 PO Last administered on 03/13/18at 08:59; Admin Dose 20 MG; Start 03/10/18 at 09:00 Cefepime HCl 50 ml @ 100 mls/hr Q12 IVPB Last administered on 03/11/18 08:37; Admin Dose 100 MLS/HR; Start 03/10/18 at 09:00; Status Hold Atenolol (Tenormin) 25 mg DAILY PO Last administered on 03/13/18 09:27; Admin Dose 25 MG; Start 03/10/18 at 09:00 Atorvastatin Calcium (Lipitor) 40 mg QHS PO Last administered on 03/12/18at 20:55; Admin Dose 40 MG; Start 03/10/18 at 21:00 Diagnostic Test (Pha) (Accu-Chek) 1 ea 02 XX ; Start 03/11/18 at 02:00 Diagnostic Test (Pha) (Accu-Chek) 1 ea 2 HOURS AFTER MEALS XX Last administered on 03/13/18at 14:44; Admin Dose 1 EA; Start 03/10/18 at 10:00 Insulin Aspart (Novolog Insulin Pen) 6 unit WITH MEALS SC Last administered on 03/13/18at 08:58; Admin Dose 6 UNIT; Start 03/10/18 at 08:00 Insulin Aspart (Novolog Insulin Pen) NOVOLOG *MILD* ALGORITHM WITH MEALS BEDTIM E SC Last administered on 03/12/18at 12:37; Admin Dose 3 UNIT; Start 03/10/18 at 08:00 Miscellaneous Information 1 ea NOTE XX ; Start 03/10/18 at 04:30 Glucose (Glutose) 15 gm Q15M PRN PO DECREASED GLUCOSE; Start 03/10/18 at 04:30 Glucose (Glutose) 22.5 gm Q15M PRN PO DECREASED GLUCOSE; Start 03/10/18 at 04:30 Dextrose (D50w Syringe) 25 ml Q15M PRN IV DECREASED GLUCOSE; Start 03/10/18 at 04:30 Dextrose (D50w Syringe) 50 ml Q15M PRN IV DECREASED GLUCOSE; Start 03/10/18 at 04:30 Glucagon (Glucagen) 1 mg Q15M PRN IM DECREASED GLUCOSE; Start 03/10/18 at 04:30 Glucose (Glutose) 15 gm Q15M PRN BUCCAL DECREASED GLUCOSE; Start 03/10/18 at 04:30 Insulin Human NPH (Humulin N) 16 unit BID@08,20 SC Last administered on 03/13/18 08:57; Admin Dose 16 UNIT; Start 03/10/18 at 20:00 Ceftriaxone Sodium 50 ml @ 100 mls/hr Q24H IVPB Last administered on 03/12/18 15:28; Admin Dose 100 MLS/HR; Start 03/11/18 at 16:00 Docusate Sodium (Colace) 100 mg BID PO Last administered on 03/13/18 08:59; Admin Dose 100 MG; Start 03/11/18 at 21:00 Magnesium Hydroxide (Milk Of Mag) 30 ml DAILY PRN PO CONSTIPATION Last administered on 03/12/18 08:58; Admin Dose 30 ML; Start 03/11/18 at 15:30 Acetaminophen/ Hydrocodone Bitart ([place] (5/325)) 1 tab Q4H PRN PO MODERATE PAIN LEVEL 4-6; Start 03/11/18 at 15:30 Amlodipine Besylate (Norvasc) 2.5 mg DAILY PO Last administered on 03/13/18at 08:59; Admin Dose 2.5 MG; Start 03/12/18 at 09:00 Lisinopril (Zestril) 10 mg BID PO Last administered on 03/13/18at 09:00; Admin Dose 10 MG; Start 03/11/18 at 21:00 Lactated Ringer's 1,000 ml @ 50 mls/hr Q20H IV Last administered on 03/13/18at 12:37; Admin Dose 50 MLS/HR; Start 03/11/18 at 18:30 Haloperidol (Haldol) 1 mg Q6 PRN IM AGITATION/ANXIETY; Start 03/11/18 at 18:30; Stop 03/13/18 at 18:29 Phenol (Cepastat Lozenge) 1 lozenge Q1H PRN MT sore throat Last administered on 03/12/18at 08:55; Admin Dose 1 LOZENGE; Start 03/12/18 at 08:00 [place] Carbonate ([place] Carbonate) 450 mg DAILY PO Last administered on 03/13/18at 08:59; Admin Dose 450 MG; Start 03/13/18 at 09:00 BENJA CHAVEZ MD Mar 13, 2018 15:09
[2018-03-13] MEDS: CEFTRIAXONE 1 GM/50 ML (PMX) 50 ML IVPB SCH (16:50)
--- NOTE | 2018-03-13 17:58 | NUR ---
End of shift summary: Patient in stable condition .V.S and BS within normal limits. CBI discontinue by . Planning to discontinue Dougherty catheter tomorrow at 6 am per MD order. Will endorse it to overnight babysitter. Jada RESPIRATORY THERAPY DIRECTOR consult patient today .Patient refused more medications per RESPIRATORY THERAPY DIRECTOR.Call light within reach,bed alarm on .Full report will be given to next shift RN.
[2018-03-13 19:44] VITALS: BP 121/56; PULSE 60; RESP 23
[2018-03-13] MEDS: ATORVASTATIN 40 MG TAB PO SCH (20:42)
[2018-03-14] MEDS: ACCU-CHEK XX SCH ×4 (00:06→20:43)
[2018-03-14 01:40] VITALS: BP 147/68; PULSE 63; RESP 24
--- NOTE | 2018-03-14 05:40 | NUR ---
EOSS Pt ambulated with 2 person assist and FWW; tolerated it well. DC flowers cath per dr's orders. Pt refused scheduled insulin, colace, and milk of magnesia. Pt is forgetful. Possible discharge today.
[2018-03-14] MEDS: LACTATED RINGER'S 1,000 ML IV SCH (06:30)
[2018-03-14 08:00] VITALS: BP 130/63; PULSE 70; RESP 20
[2018-03-14] MEDS: INSULIN ASPART [NOVOLOG] 3 ML PEN SC SCH ×5 (08:00→20:47)
[2018-03-14] MEDS: LITHIUM CARBONATE 150 MG CAP PO SCH (08:42)
[2018-03-14] MEDS: AMLODIPINE 2.5 MG TAB PO SCH (08:45)
[2018-03-14] MEDS: FAMOTIDINE 20 MG TAB PO SCH ×2 (08:45→20:44)
[2018-03-14] MEDS: DOCUSATE SODIUM 100 MG CAP PO SCH ×2 (08:45→20:44)
[2018-03-14] MEDS: LISINOPRIL 10 MG TAB PO SCH (08:45)
[2018-03-14] MEDS: ASPIRIN 81 MG TAB PO SCH (08:45)
[2018-03-14] MEDS: ATENOLOL 25 MG TAB PO SCH (08:46)
[2018-03-14] MEDS: NPH, HUMAN INSULIN ISOPHANE 3ML VIAL SC SCH (08:57)
[2018-03-14] MEDS: metFORMIN 500 MG TAB PO SCH ×2 (11:38→17:10)
[2018-03-14] MEDS: FINASTERIDE 5 MG TAB PO SCH (11:38)
--- NOTE | 2018-03-14 12:07 | NUR ---
Spoke to the pt and he advised that he wants to go home. He added that he can take care of himself and has neighbor and friends who help him.
--- NOTE | 2018-03-14 12:09 | NUR ---
IMM signed and is on the chart.
--- NOTE | 2018-03-14 12:10 | NUR ---
Pt needs a ride home. A taxi voucher or complimentary van please follow up on Thursday.
[2018-03-14] MEDS ORDERED: CEPHALEXIN 500 MG CAP PO SCH (14:00)
[2018-03-14 14:27] VITALS: BP 139/71; PULSE 80; RESP 21
[2018-03-14] MEDS: MAGNESIUM HYDROXIDE 30ML CUP PO PRN (15:55)
[2018-03-14] MEDS: CEFTRIAXONE 1 GM/50 ML (PMX) 50 ML IVPB SCH (15:58)
--- NOTE | 2018-03-14 16:01 | PN ---
Date/Time of Note Date/Time of Note DATE: 03/14/18 TIME: 15:58 Assessment/Plan Lines/Catheters IV Catheter Type (from [facility]): Peripheral IV Dougherty in Place (from [facility]): No Assessment/Plan Chief Complaint/Hosp Course 72-year-old male who was admitted because of gross hematuria and urinary retention. He was found to have a very large prostate that is obstructing him and there was no bladder tumor. He underwent transurethral resection of the prostate on 03/11/2018. The Dougherty catheter that he had was removed this morning. He has voided 3 times. The urine is blood-tinged and that is expected and gradually it will clear up. We will watch him today and if the urine continues to clear up we may send him home tomorrow. Subjective 24 Hr Interval Summary Patient is status post transurethral resection of prostate. He is up ambulating with the help of the nursing staff. The Dougherty catheter was removed earlier this morning and he has voided 3 times the postvoid residual has been less than 200 mL. Exam/Review of Systems Vital Signs Vitals Vital Signs Date Temp Pulse Resp B/P (MAP) Pulse Ox O2 O2 Flow FiO2 Time Delivery Rate 03/14/18 98.0 80 21 139/71 97 Room Air 14:27 (93) 03/11/18 8.0 15:38 Intake and Output 03/13/18 03/13/18 03/14/18 1515:00 23:00 07:00 IntakeIntake Total 475 ml 4625 ml 470 ml OutputOutput Total 1250 ml 1700 ml BalanceBalance 475 ml 3375 ml -1230 ml Exam Free Text/Dictation Dougherty catheter is out and he has voided 3 times. The urine is blood-tinged. The patient has not had a bowel movement for over 3 days. He has been refusing the Colace and milk of magnesia. I have talked to him to take it. We will watch him today and hopefully the urine will gradually clear up and then he may be discharged home tomorrow. Results Result Diagram: 03/13/18 0621 03/13/18 0621 KAELA DOZIER MD Mar 14, 2018 16:01
--- NOTE | 2018-03-14 17:54 | NUR ---
END OF SHIFT NOTES: PT STABLE, ALERT & ORIENTED X4. FORGETFULNESS NOTED. NO DISTRESS NOTED. ACHS AND POST PRANDIAL ACCUCHECKS DONE, INSULIN COVERAGE GIVEN. URINE COLLECTED IN A CUP ORDERED BY DR. DOZIER FOR COLOR COMPARISON. POST VOID BLADDER SCAN DONE. PROVIDED 2PERSON ASSISTANCE IN AMBULATING WITH WALKER. INSTRUCTED PT TO CALL FOR ASSISTANCE. VS WNL.HOURLY ROUNDING. CALL LIGHT WITHIN REACH.ALL NEEDS MET. NO NEW COMPLAINTS.
[2018-03-14] MEDS: ATORVASTATIN 40 MG TAB PO SCH (20:44)
[2018-03-14 20:55] VITALS: BP_SYST 134; BP_SYST 234; BP_DIAS 57; PULSE 60; RESP 20
[2018-03-15 02:05] VITALS: BP 129/69; PULSE 63; RESP 20
[2018-03-15] MEDS: ACCU-CHEK XX SCH ×2 (02:41→11:42)
--- NOTE | 2018-03-15 05:36 | NUR ---
END OF SHIFT REPORT Pt alert and oriented x3. Pt on bed in low position with call light within reach. Bed alarm activated. Vitals stable. Pt ambulates with walker and assist x1. All due meds given. Pt voids in cup and each void saved for MD to examine. Pt continues bleeding with urination. Will endorse pt to AM shift nurse for continuation of care.
--- NOTE | 2018-03-15 08:40 | PN ---
Date/Time of Note Date/Time of Note DATE: 03/15/18 TIME: 08:34 Assessment/Plan Lines/Catheters IV Catheter Type (from [facility]): Peripheral IV Dougherty in Place (from [facility]): No Assessment/Plan Chief Complaint/Hosp Course 72-year-old male who was admitted because of gross hematuria and urinary retention. He was found to have a very large prostate that is obstructing him and there was no bladder tumor. He underwent transurethral resection of the prostate on 03/11/2018. Since the Dougherty catheter was removed he has been voiding. The urine is blood-tinged and will gradually clear up. There is no urinary retention and in no urinary incontinence but he does urinate in bed as he is not using the urinal and he does not go to the bathroom. He may have some urgency and urgency incontinence and that will gradually improve. He has not had a bowel movement even though he was given milk of magnesia yesterday. We will give him another dose today. The pathology report shows no malignancy and the amount resected was 59 g. The patient may go home today on Colace, milk of magnesia as needed, antibiotic for 1 week and that could be Cipro or Bactrim. Follow-up in the office in about 2 weeks. I gave him my card so he could call me with any question or concerns and for him to call the office and make an appointment. Subjective 24 Hr Interval Summary Patient is voiding and states that he feels like he is in a swimming pool as he is urinating in bed. He is not using the urinal. Exam/Review of Systems Vital Signs Vitals Vital Signs Date Temp Pulse Resp B/P (MAP) Pulse Ox O2 O2 Flow FiO2 Time Delivery Rate 03/15/18 98.1 63 20 129/69 97 Room Air 02:05 (89) 03/11/18 8.0 15:38 Intake and Output 03/14/18 03/14/18 03/15/18 1515:00 23:00 07:00 IntakeIntake Total 250 ml 100 ml OutputOutput Total 300 ml 1150 ml 350 ml BalanceBalance -50 ml -1050 ml -350 ml Exam Free Text/Dictation He does not have incontinence. He does urinate in bed as he is not using the urinal. He has limited ambulation so he does not go to the bathroom. His urine is still blood-tinged but that will gradually clear up. There is no urinary retention. Results Result Diagram: 03/13/18 0621 03/13/18 0621 KAELA DOZIER MD Mar 15, 2018 08:40
[2018-03-15] MEDS: ASPIRIN 81 MG TAB PO SCH (08:51)
[2018-03-15] MEDS: DOCUSATE SODIUM 100 MG CAP PO SCH (08:51)
[2018-03-15] MEDS: LITHIUM CARBONATE 150 MG CAP PO SCH (08:51)
[2018-03-15] MEDS: FINASTERIDE 5 MG TAB PO SCH (08:52)
[2018-03-15] MEDS: ATENOLOL 25 MG TAB PO SCH (08:52)
[2018-03-15] MEDS: FAMOTIDINE 20 MG TAB PO SCH (08:52)
[2018-03-15] MEDS: metFORMIN 500 MG TAB PO SCH (08:52)
[2018-03-15] MEDS: INSULIN ASPART [NOVOLOG] 3 ML PEN SC SCH ×2 (08:54→12:49)
[2018-03-15] MEDS ORDERED: MAGNESIUM HYDROXIDE 30ML CUP PO ONE (09:00)
[2018-03-15] MEDS ORDERED: LISINOPRIL 20 MG TAB PO SCH (09:00)
[2018-03-15 09:04] VITALS: BP 137/76; RESP 1
--- NOTE | 2018-03-15 09:15 | NUR ---
PT Note Therapy day number 4 Subjective Denies pain Pain Scale NUMERIC Pain Intensity 0 (0-10) Patient Stated Goal for Pain Relief 0 (0-10) Pain Level Comment denies pain Pre Treatment Vital Signs Stable Yes Transfer Training Start Time 09:15 Supine to Sit Modified Independent Transfer Sit to Stand Ability Modified Independent Bed Mobility Sit to Supine Modified Independent Bed Transfer Ability Modified Independent Chair Transfer Ability Modified Independent Toileting Ability Modified Independent Additional Mobility Comments sit-stand with FWW, can scoot EOB with no AD Transfer Training End Time 09:30 Total Transfer Training Time 15 min (8-127) Patient uses wheelchair Not Applicable Gait Training Start Time 09:30 Gait Assist Levels Modified Independent Assistive Devices Front Wheel Walker Ambulation Distance 350 feet Additional Gait Comments 250+100' Karis, reciprocal gait, light UE support on FWW, small step length Gait Training End Time 09:45 Total Gait Training Treatment Time 15 min (8-127) Stair Training Start Time 09:45 Stair Climbing Ability Modified Independent Number of Stairs 3 Stairs Additional Stairs Assist Comments BUE support on L railing. reciprocal steps Stair Training End Time 10:00 Total Stair Training Time 15 min (8-127) Static Sitting Balance Good Dynamic Sitting Balance Good Standing Static Balance Good Dynamic Standing Balance Good Additional Balance Assessments Comments with FWW Safety Judgement Good Activity Tolerance Good Post Treatment Pain Intensity 0 0-10 Total Treament Time 45 min (8-127) Total Minutes 45 Total Units 3 PT Technical Record Comment S: Pt was found supine in bed with soiled sheets, agreeable to PT. RN cleared pt for activity. O: Pt was seen for bed mobility, transfers, gait, and stair training. Mild shaking in the RUE was observed. Pt was able to walk 350' Karis with FWW and 3 steps with BUE support on the L railing Karis. Pt was returned to bed with call light nearby, bed alarm on, all needs met. Spoke to RN regarding pt response to activity and PT plan of care. 2p SBA had been used for safety with stair training and gait, but was not needed. A: Pt has met all mobility goals and presents with good balance, control, and mobility throughout. Pt is Karis with a FWW, able to navigate obstacles during ambulation, and follows commands. Pt may continue to benefit from inpatient PT to ambulate with an SPC as pt reports "the walker will not fit in my house." P: Continue inpatient PT for gait training with SPC vs least restrictive AD. Recommendation: Pt may benefit from FWW and HHPT upon d/c when medically cleared by MD.
--- NOTE | 2018-03-15 13:22 | PN ---
Date/Time of Note Date/Time of Note DATE: 03/15/18 TIME: 13:19 Assessment/Plan VTE Prophylaxis Risk score (from Nsg)>0 risk: 4 SCD applied (from Ns): Yes SCD contraindicated: low risk/ambulating Pharmacological prophylaxis: NA/contraindicated (bleeding, will be going home) Pharm contraindication: other (hematuria) Lines/Catheters IV Catheter Type (from Nrs): Peripheral IV Urinary Cath still in place: No Assessment/Plan Result Diagram: 03/13/1821 03/13/18 0621 Results 24hrs Laboratory Tests Test 03/14/18 14:09 03/14/18 17:09 03/14/18 20:42 03/15/18 02:11 Bedside Glucose 204 160 211 172 Test 03/15/18 08:50 03/15/18 11:40 03/15/18 12:47 Bedside Glucose 145 187 199 Subjective 24 Hr Interval Summary Free Text/Dictation stable as noted post tur. catheter is out. still bloody urine. ok for discharge with cane vs walker, does not want home p.t. antibiotic ciporo will be called to pharmnacy, follow up with me by phone on thursday, see dr andrews next week discharge summary done, discharge condition is good Genitourinary: bleeding Exam/Review of Systems Vital Signs Vitals Vital Signs Date Temp Pulse Resp B/P (MAP) Pulse Ox O2 O2 Flow FiO2 Time Delivery Rate 03/15/18 98.0 1 137/76 96 Room Air 09:04 (96) 03/15/18 63 02:05 03/11/18 8.0 15:38 Intake and Output 03/14/18 03/14/18 03/15/18 1515:00 23:00 07:00 IntakeIntake Total 250 ml 100 ml OutputOutput Total 300 ml 1150 ml 350 ml BalanceBalance -50 ml -1050 ml -350 ml Medications Medications Current Medications IV Flush (NS 3 ml) 3 ml PER PROTOCOL IV ; Start 03/10/18 at 04:30 Lorazepam (Ativan) 0.5 mg Q8H PRN PO ANXIETY; Start 03/10/18 at 04:30 Ondansetron HCl (Zofran Tab) 4 mg Q6H PRN PO NAUSEA AND/OR VOMITING; Start 03/10/18 at 04:30 Aspirin (Aspirin) 81 mg DAILY PO Last administered on 03/15/18 08:51; Admin Dose 81 MG; Start 03/10/18 at 09:00 Acetaminophen (Tylenol Tab) 650 mg Q6H PRN PO PAIN LEVEL 1-3 OR FEVER Last administered on 03/10/18 13:54; Admin Dose 650 MG; Start 03/10/18 at 04:30 Acetaminophen/ Hydrocodone Bitart ([place] (5/325)) 1 tab Q6H PRN PO PAIN LEVEL 4-6 Last administered on 03/10/18 09:52; Admin Dose 1 TAB; Start 03/10/18 at 04:30 Docusate Sodium (Colace) 100 mg Q12H PRN PO CONSTIPATION; Start 03/10/18 at 04:30 Famotidine (Pepcid) 20 mg Q12 PO Last administered on 03/15/18 08:52; Admin Dose 20 MG; Start 03/10/18 at 09:00 Atenolol (Tenormin) 25 mg DAILY PO Last administered on 03/15/18 08:52; Admin Dose 25 MG; Start 03/10/18 at 09:00 Atorvastatin Calcium (Lipitor) 40 mg QHS PO Last administered on 03/14/18 20:44; Admin Dose 40 MG; Start 03/10/18 at 21:00 Diagnostic Test (Pha) (Accu-Chek) 1 ea 02 XX Last administered on 03/15/18 02:41; Admin Dose 1 EA; Start 03/11/18 at 02:00 Diagnostic Test (Pha) (Accu-Chek) 1 ea 2 HOURS AFTER MEALS XX Last administered on 03/14/18 20:43; Admin Dose 1 EA; Start 03/10/18 at 10:00 Insulin Aspart (Novolog Insulin Pen) NOVOLOG *MILD* ALGORITHM WITH MEALS BE DTIME SC Last administered on 03/15/18 12:49; Admin Dose 2 UNIT; Start 03/10/18 at 08:00 Miscellaneous Information 1 ea NOTE XX ; Start 03/10/18 at 04:30 Glucose (Glutose) 15 gm Q15M PRN PO DECREASED GLUCOSE; Start 03/10/18 at 04:30 Glucose (Glutose) 22.5 gm Q15M PRN PO DECREASED GLUCOSE; Start 03/10/18 at 04:30 Dextrose (D50w Syringe) 25 ml Q15M PRN IV DECREASED GLUCOSE; Start 03/10/18 at 04:30 Dextrose (D50w Syringe) 50 ml Q15M PRN IV DECREASED GLUCOSE; Start 03/10/18 at 04:30 Glucagon (Glucagen) 1 mg Q15M PRN IM DECREASED GLUCOSE; Start 03/10/18 at 04:30 Glucose (Glutose) 15 gm Q15M PRN BUCCAL DECREASED GLUCOSE; Start 03/10/18 at 04:30 Ceftriaxone Sodium 50 ml @ 100 mls/hr Q24H IVPB Last administered on 03/14/18at 15:58; Admin Dose 100 MLS/HR; Start 03/11/18 at 16:00 Docusate Sodium (Colace) 100 mg BID PO Last administered on 03/15/18at 08:51; Admin Dose 100 MG; Start 03/11/18 at 21:00 Magnesium Hydroxide (Milk Of Mag) 30 ml DAILY PRN PO CONSTIPATION Last admi nistered on 03/14/18at 15:55; Admin Dose 30 ML; Start 03/11/18 at 15:30 Acetaminophen/ Hydrocodone Bitart ([place] (5/325)) 1 tab Q4H PRN PO MODERATE PAIN LEVEL 4-6; Start 03/11/18 at 15:30 Phenol (Cepastat Lozenge) 1 lozenge Q1H PRN MT sore throat Last administered on 03/12/18at 08:55; Admin Dose 1 LOZENGE; Start 03/12/18 at 08:00 Emlyn Carbonate (Emlyn Carbonate) 450 mg DAILY PO Last administered on 03/15/18at 08:51; Admin Dose 450 MG; Start 03/13/18 at 09:00 Cephalexin (Keflex) 500 mg Q8 PO ; Start 03/14/18 at 14:00; Stop 03/28/18 at 13:59; Status UNV Finasteride (Proscar) 5 mg DAILY PO Last administered on 03/15/18at 08:52; Admin Dose 5 MG; Start 03/14/18 at 10:30; Stop 05/13/18 at 10:29 Lisinopril (Zestril) 40 mg QAM PO Last administered on 03/15/18at 08:51; Admin Dose 40 MG; Start 03/15/18 at 09:00 Metformin HCl (Glucophage) 500 mg BID WITH MEALS PO Last administered on 03/15/18at 08:52; Admin Dose 500 MG; Start 03/14/18 at 10:30 LILIAM IVERSON MD Mar 15, 2018 13:22
--- NOTE | 2018-03-15 13:29 | PDOCDIS ---
Discharge Instructions CONDITION [id number] Patient Condition: Jwyuv0l Fair HOME CARE INSTRUCTIONS: [id number] Diet Instructions: [id number] Reduced Calorie [id number] Special Diet: Xfisl2i NPO OTHER ORDERS: Other Orders: the lithium dose is 450 mg a day as you have been doing use what ever test strips you have to check the blood sugar twice a day continue nph insulin as before LILIAM IVERSON MD Mar 15, 2018 13:29
--- NOTE | 2018-03-15 15:57 | NUR ---
Discharge Summary: pt. A/Ox4, VSS, no acute distress. Pt. DC'd to home with self care. MD Solis stated that he would call pharmacy for pt's antibiotic and discussed home meds with pt. IVs removed. Armbands removed. Discharge paperwork went over with and given to pt. Pt. DC's via wheelchair with taxi voucher. All belongings accounted for.
--- NOTE | 2018-03-15 16:23 | DS ---
DATE OF ADMISSION: 03/10/2018 DATE OF DISCHARGE: 03/15/2018 CHIEF COMPLAINT: Gross hematuria. FINAL DIAGNOSES: 1. Gross hematuria secondary to obstructing large prostate with bleeding, status post TUR performed on 03/12/2018. 2. Diabetes mellitus, poor control. 3. Arteriosclerotic coronary artery disease, stable. 4. Hyperlipidemia. 5. Manic depressive illness, relatively stable. HOSPITAL COURSE: Mr. Rubio, a 72-year-old man, was recently discharged from hospital after an epis ode of gross hematuria. He seemed to do well and then the hematuria recurred at home. He was unable to void. He came into the hospital, febrile. He was seen again by Dr. Babcock. A large bore yousif ter was placed. Clots were hand irrigated and he was irrigated. However, his bleeding did not stop. Cystoscopy was performed revealing a very large prostate. A TUR was performed with improvement in dynamics. He was ultimately able to remove the catheter, but there is still some bleeding noted. Th e patient will be discharged home on his usual medications and Cipro per urology. He is to call me i n [address] he has Dr. Babcock's phone number to call and make an appointment. DISCHARGE CONDITION: Fair. He is ambulatory without safety concerns. He can go home with a single point cane. He will require either taxi or other forms of transportation to get home. Dictated By: LILIAM IVERSON MD SR/NTS Conf#: [id number] DID#: [id number] CC: BENJA CHAVEZ MD; SARAH PINA NP;*[facility]*
[2018-03-15] MEDS ORDERED: NPH, HUMAN INSULIN ISOPHANE 3ML VIAL SC SCH (17:30)
[2018-03-15] MEDS ORDERED: TERAZOSIN 1 MG CAP PO SCH (21:00)
== END 2018-03-15 15:45 | disposition home or self-care (01) | DRG 854 ==
LOC: E/R 23:11 → 6WM 03-10 01:22 → EDBEDREQSVC 03-10 01:33 → PP2 03-10 18:09 → 5EC 03-12 12:07
PROVIDERS: ADMIT Internal Medicine; ATTEND Internal Medicine
PROC: 30233N1 Transfusion of Nonautologous Red Blood Cells into Peripheral Vein, Percutaneous Approach (ICD-10-PCS; 2018-03-10)
PROC: 0TJB8ZZ Inspection of Bladder, Via Natural or Artificial Opening Endoscopic (ICD-10-PCS; 2018-03-11)
PROC: 0VT08ZZ Resection of Prostate, Via Natural or Artificial Opening Endoscopic (ICD-10-PCS; principal; 2018-03-11 12:30)
DX: A41.9 Sepsis, unspecified organism (principal); N39.0 Urinary tract infection, site not specified; N40.1 Benign prostatic hyperplasia with lower urinary tract symptoms; R33.8 Other retention of urine; I10 Essential (primary) hypertension; I25.10 Atherosclerotic heart disease of native coronary artery without angina pectoris; F31.9 Bipolar disorder, unspecified; D64.9 Anemia, unspecified; R31.0 Gross hematuria; E11.65 Type 2 diabetes mellitus with hyperglycemia; Z95.5 Presence of coronary angioplasty implant and graft; R39.14 Feeling of incomplete bladder emptying; B96.1 Klebsiella pneumoniae [K. pneumoniae] as the cause of diseases classified elsewhere
CPT/HCPCS: 36430; 71045; 80048; 80053; 80178; 81001; 82962; 83036; 83605; 84484; 85025; 85610; 85730; 86644; 86850; 86900; 86901; 86920; 87040; 87081; 87086; 88305; 93005; 97110; 97116; 97162; 97530; J0690; J0692; J0696; J1170; J1815; J2060; J2270; J2405; J2710; J3010; J3370; J7030; J7040; J7042; J7120; P9016